=== PATIENT | female | born 1940 | race Caucasian/White ===

== ENCOUNTER → 2016-09-26 | Outpatient (CLI) | payer OTHER, MEDICARE | LOC: MMPC 11:11 | PROVIDERS: ATTEND Nurse Practitioner | DX: R05 Cough (principal); R49.0 Dysphonia; R09.81 Nasal congestion | CPT/HCPCS: 99213; G0463 ==

== ENCOUNTER → 2016-10-31 | Outpatient (CLI) | payer OTHER, MEDICARE | LOC: MMPC 11:11 | PROVIDERS: ATTEND Surgery | DX: Z86.010 Personal history of colon polyps (principal) | CPT/HCPCS: 99213 ==

== ENCOUNTER → 2016-11-05 | Outpatient (CLI) | payer OTHER, MEDICARE | LOC: LAB 08:42 | PROVIDERS: ATTEND Surgery | DX: Z22.322 Carrier or suspected carrier of Methicillin resistant Staphylococcus aureus (principal) | CPT/HCPCS: 87641 ==

== ENCOUNTER 2016-11-08 08:30 | Day surgery (SDC) | payer OTHER, MEDICARE ==
[~2016-11-08 08:30] MED LIST: LIDOCAINE W/ SODIUM BICARB 0.5 ML SYR ONE; Lactated Ringers 1,000 ML PRIMARY IV ONE; MIDAZOLAM 5 MG/1 ML ONE; fentaNYL Inj 100 MCG/2 ML VIAL ONE
--- NOTE | 2016-11-08 10:03 | GEN.OPNOTE ---
Colonoscopy Procedure Note Surgery Date: 11/08/16 Preoperative Diagnosis: Personal history of colon polyps. Postoperative Diagnosis: Same. Procedure: Complete colonoscopy. Surgeon: Danilo Fermin MD Anesthesia Provider: Fernando Bishop CRNA Anesthesia Type: MAC Indications: Patient had a cecal polyp removed 3 years ago. She is due for follow-up colonoscopy. Findings: Prep : [Good with some retained stool in the cecum] Cecum : [Normal] Ascending : [Normal] Transverse : [Normal] Sigmoid : [A few diverticuli] Rectum : [Normal] Digital Rectal Exam : [Normal] A lubricated flexible colonoscope was inserted and passed to the blind end of the cecum. The blind end of the cecum and ileocecal valve were clearly seen. The cecum needed to be rinsed of particulate matter but overall I got a very good look. Overall the prep was adequate. A tiny polyp could've been missed as there was some retained stool. Air was aspirated as the scope was withdrawn. The colonoscopy was normal without polyp, tumor, neoplastic mass, infectious or inflammatory process. The scope was withdrawn completing the procedure. Patient tolerated the procedure well without complication. She was taken to outpatient surgery in stable condition. Follow-up with my office on an as-needed basis. Patient would not need a colonoscopy for 5 years at which time should be 81 years old. Probably not necessary to do any further colonoscopies.
[2016-11-08 12:04] VITALS: RESP 16; TEMP 97.6
== END 2016-11-08 11:45 | disposition home or self-care (01) ==
LOC: SDSC 08:30
PROVIDERS: ATTEND Surgery
DX: Z86.010 Personal history of colon polyps (principal)
CPT/HCPCS: 45378; J2704; J3010; J2250; J7120

== ENCOUNTER 2016-12-07 10:24 | Observation (INO) | payer OTHER, MEDICARE ==
[2016-12-07] MEDS ORDERED: KETOROLAC 15 MG/1 ML VIAL IVP ONE (10:38)
--- NOTE | 2016-12-07 10:44 | PDOC ---
Back Pain / Injury HPI - General Chief Complaint: Neck / Back Complaint Stated Complaint: BACK PAIN Date Seen by Provider: 12/07/16 Time Seen by Provider: 10:35 Source: Patient Exam Limitations: POSITIVE: No limitations Nurse's Notes Reviewed & Considered: Yes - History of Present Illness Initial Comments: The patient is a 76-year-old female who presents to the emergency department with right lower back pain. She states that she underwent right hip replacement in August of last year. She continues to do outpatient physical therapy for this. She states that yesterday she was also having some pain in her right lower back when she went to physical therapy. She states that after therapy this pain seemed to intensify. She denies any specific injury otherwise. This morning the pain was bad enough that she was having a difficult time walking. She lives in assisted living by herself and subsequently called EMS to bring her here to the emergency room. She denies any urinary symptoms. She does have some radiation of pain into her right leg however she is unsure whether this is new pain or pain related to her hip surgery. She denies any fevers or chills or any other associated complaints. She did not take anything for pain yet this morning. - Patient Home Medications Home Medications: Home Medications Calcium 500 + Vit D 200 Caplet 1 tab PO BID 04/18/11 Docusate Sodium [Colace] 1 cap ORAL BID capsule 04/18/11 Cholecalciferol [Vitamin D] 1 cap PO BID cap 11/21/11 Nitroglycerin 1 tab SL q5 PRN #30 tab 11/13/12 Zinc Gluconate [Zinc] 1 tab PO DAILY tab 06/22/13 Ascorbic Acid [Vitamin C] 1,000 mg PO DAILY tab 08/31/14 Denosumab [Prolia] 1 ml SUBCUT every 6 months #0 ml 06/15/15 Loratadine 10 mg PO DAILY #10 tab 04/02/16 Sodium Chloride [Saline Nasal [place]] 44 ml NS PRN #1 spray 04/02/16 Pantoprazole Sodium [Protonix] 1 tab PO QPM #30 tab 04/22/16 Atorvastatin Calcium [Lipitor] 1 tab PO QHS #30 tab 07/03/16 Bumetanide 1 tab PO BID #60 tab 09/05/16 Fluticasone/Salmeterol [Advair 250-50 Diskus] 1 puff INH BID #1 puff 09/05/16 Fenofibric Acid (Choline) [Trilipix] 1 tab-cap ORAL QD #30 tab-cap 10/14/16 Metoprolol Tartrate 1 tab ORAL BID #60 tab 10/14/16 Potassium Chloride 3 cap PO BID #180 cap 10/21/16 - Patient Allergies Allergies/Adverse Reactions: Allergies Allergy/AdvReac Type Severity Reaction Status Date / Time hydrochlorothiazide Allergy Severe UNKNOWN Verified 12/07/16 10:35 triamterene [Triamterene] Allergy Severe UNKNOWN Verified 12/07/16 10:35 Past Medical History - heen HEENT History: Hard of Hearing, Dentures/Partials Cardiovascular History: Hypertension, Hyperlipidemia Respiratory History: Asthma Additional Respiratory History: ALLERGIC RHINITIS Gastrointestinal History: GERD Genitourinary History:  Additional Genitourinary History: YEAR AGO UTI Endocrine History: Denies History Musculoskeletal History: Osteoporosis Prosthesis or Implant: Yes (RIGHT HIP) Additional Musculoskeletal History: VITAMIN D DEFICIENCY Neurological History:  Additional Neurological History: PT IS CONFUSED AT TIMES, STATES MEMORY ISN'T GOOD IT USED TO BE, STATES NO ONE MAKES HER MEDICAL DECISIONS YET Blood Disorders: Denies History Psychiatric History: Depression History of Sexually Transmitted Diseases: No Cancer History: Denies History History of MDRO: Yes History of Other Communicable Diseases: No Alcohol Use: Rarely Substance Use Type: None Previous Surgical History: Yes Type / Date of Surgery: RIGHT MINO/BILAT CATARACT EXT/ COLONOSCOPY/ CORONARY ANGIOGRAM/ RIGHT 5TH FINGER DISLOCATION REPAIR Anesthesia Reactions: No Malignant Hyperthermia: No Significant Family History: Heart disease Past Medical History Reviewed: Reviewed - No Changes ROS - Limitations ROS Limitations: No Limitations Constitution: DENIES: Chills, Fever Cardiovascular: REPORTS: Denies Cardiac Symptoms Respiratory: REPORTS: Denies Resp Symptoms Neurological: DENIES: Headache, Dizziness, Tingling, Numbness, Weakness Gastrointestinal: REPORTS: Denies GI Symptoms. DENIES: Abdominal Pain Genitourinary: REPORTS: Denies Symptoms. DENIES: Dysuria, Hematuria, Difficulty Urinating Eyes: REPORTS: Denies Symptoms ENT: REPORTS: Denies Symptoms Skin: DENIES: Rash Back Physical Assessment - General Appearance General Appearance: REPORTS: Alert, Cooperative, No Acute Distress - HEENT HEENT: POSITIVE: Head Inspection Nml - Neck Neck: POSITIVE: Trachea Midline - Respiratory / CVS Respiratory / CVS: POSITIVE: Breath Sounds Normal, No Respiratory Distress, Heart Sounds Normal, Regular Rate/Rhythm - Abdomen Abdomen: Soft: (All Quadrants), Denies Tenderness: (All Quadrants), No Distention: (All Quadrants) - Skin Skin: REPORTS: Intact, No Rash - Extremities Extremity Assessment: Normal ROM: (ALL), Normal Inspection: (ALL) (trace edema in the lower extremities) Peripheral Pulses: Dorsalis-pedis (R): 2+, Dorsalis-pedis (L): 2+ - Neurological / Psychological Neuro / Psych: POSITIVE: Oriented X3, Motor Normal, Sensation Normal Back Progress - Results Reviewed by me Xrays/CTs/US Reviewed: Yes Discussed with Radiologist: Yes Radiology Findings: CT the abdomen and pelvis without contrast reveals no acute intra-abdominal pathology, she does have degenerative changes in the lumbar spine with no acute fracture. Lab Results Reviewed: Yes Lab Results:: Laboratory Results 12/07/16 12/07/16 Range/Units 10:45 10:50 WBC 7.82 (4.8-10.8) 10^3/uL RBC 4.71 (4.20-5.40) 10^6/uL Hgb 13.3 (12.0-16.0) g/dL Hct 41.1 (37.0-47.0) % MCV 87.3 (81-99) FL MCH 28.2 (27-31) PG MCHC 32.4 L (33-37) g/dL RDW Std Deviation 45.6 (39-50) fL RDW Coeff of Carlyn 14.5 (11.5-14.5) % Plt Count 308 (140-350) 10*3/uL MPV 11.5 (7.4-12.2) FL Immature Gran % (Auto) 0.3 (0-5) % Neut % (Auto) 48.7 L (50-80) % Lymph % (Auto) 28.1 (10-50) % [place] % (Auto) 7.2 (5-15) % Eos % (Auto) 14.7 H (0-8) % Baso % (Auto) 1.0 (0-1) % Immature Gran # (Auto) 0.02 10*3/UL Neut # (Auto) 3.81 10*3/UL Lymph # (Auto) 2.20 10*3/uL [place] # (Auto) 0.56 (0.3-0.8) 10*3/UL Eos # (Auto) 1.15 10*3/UL Baso # (Auto) 0.08 10*3/UL WBC Morphology Comment Normal morphology (NORM) Plt Morphology Comment Normal morphology (NORM) RBC Morph Comment Normal morphology (NORM) Sodium 141 (135-145) meq/L Potassium 4.2 (3.8-5.2) meq/L Chloride 102 (98-112) meq/L Carbon Dioxide 27 (23-33) meq/L Anion Gap 12 (5-20) BUN 22 (7-22) mg/dL Creatinine 1.1 (0.50-1.20) mg/dL Estimated GFR (>60 ml/min/1.73m(2)) BUN/Creatinine Ratio 20.00 (6-20) Glucose 99 (78-110) mg/dL Calculated Osmolality 294.0 H (267-292) mOsm/kg Calcium 10.2 (8.7-10.7) mg/dL Total Bilirubin 0.8 (0.3-1.2) mg/dL AST 29 (8-39) IU/L ALT 24 (9-52) IU/L Alkaline Phosphatase 58 (38-126) IU/L C-Reactive Protein 0.7 (0.0-0.9) mg/dL Total Protein 7.8 (6.1-8.0) g/dL Albumin 4.8 (3.5-4.8) g/dL Globulin 3.0 (2.50-4.10) g/dL Albumin/Globulin Ratio 1.60 (1.3-2.0) mg/g Ur Collection Type Clean catch urine Urine Color Yellow Urine Clarity Clear (CLEAR) Urine pH 6.5 (5.0-8.5) Ur Specific [place] 1.010 (1.005-1.030) Urine Protein Negative (NEG) mg/dl Urine Glucose (UA) Negative (NEG) mg/dL Urine Ketones Negative (NEG) Urine Occult Blood Negative (NEG) Urine Nitrate Negative (NEG) Urine Bilirubin Negative (NEG) Urine Urobilinogen 0.2 (0.2) EU/dL Ur Leukocyte Esterase Negative (NEG) Ur Culture Indicated? Culture not set - Patient's Progress MDM / ED Course: An INT was established and she did receive 15 mg of Toradol IV. She had no pain relief with this and she subsequently received morphine 2 mg and Zofran 4 mg IV. This did drop her oxygen saturations and she was placed on O2 per nasal cannula. She did not however have any significant pain relief and still has considerable pain even with minimal movements in the bed primarily in her right lower back. The patient does live alone at home in the assisted living facility. At this point I do not think she would be able to function there. I did discuss patient with Dr. Bhatia and he is agreed to admit the patient for further pain control and treatment. The patient is in agreement with this plan. - Consult Counseled: POSITIVE: Patient, RE: Lab Results, RE: Radiology Results, RE: DX, RE : Need for F/U Patient Care Time - Estimated PCT Patient Care Time (In Minutes): 35 Vital Signs - Recent Vital Signs Vital Signs: Vital Signs (Last 8 hours) Temp Pulse Resp BP Pulse Ox 12/07/16 12:09 94 16 12/07/16 10:25 96.8 F 60 16 153/83 94 - VS Reviewed Vital Signs Reviewed: Yes Discharge Clinical Impression: Acute low back pain Discharge Disposition: Admit to Inpatient Condition: Fair Date Decision to Admit to Inpatient: 12/07/16 Time Decision to Admit to Inpatient: 13:20
[2016-12-07] MEDS: NORMAL SALINE 10 ML SYRINGE FLUSH IVP PRN ×3 (10:45→11:45)
[2016-12-07 10:53] LABS: BASOPHILS # (AUTO) 0.08 10*3/UL; EOSINOPHILS # (AUTO) 1.15 10*3/UL; EOSINOPHILS % (AUTO) 14.7 % (0-8); HEMATOCRIT 41.1 % (37.0-47.0); HEMOGLOBIN 13.3 g/dL (12.0-16.0); MEAN CORPUSCULAR HEMOGLOBIN 28.2 PG (27-31); MEAN CORPUSCULAR HGB CONC 32.4 g/dL (33-37); MEAN CORPUSCULAR VOLUME 87.3 FL (81-99); MEAN PLATELET VOLUME 11.5 FL (7.4-12.2); MONOCYTES # (AUTO) 0.56 10*3/UL (0.3-0.8); MONOCYTES % (AUTO) 7.2 % (5-15); NEUTROPHILS # (AUTO) 3.81 10*3/UL; NEUTROPHILS % (AUTO) 48.7 % (50-80); RED BLOOD COUNT 4.71 10^6/uL (4.20-5.40)
[2016-12-07 10:55] LABS: PLATELET MORPHOLOGY COMMENT NORMAL MORPHOLOGY (NORM); RBC MORPHOLOGY COMMENT NORMAL MORPHOLOGY (NORM); WBC MORPHOLOGY COMMENT NORMAL MORPHOLOGY (NORM)
[2016-12-07 11:05] LABS: CLARITY,URINE CLEAR (CLEAR); COLOR,URINE YELLOW; GLUCOSE, URINE (UA) NEGATIVE (NEG); NITRATE,URINE NEGATIVE (NEG); OCCULT BLOOD,URINE NEGATIVE (NEG); PH,URINE 6.5 (5.0-8.5); PROTEIN,URINE NEGATIVE (NEG); URINE SAMPLE TYPE CLEAN CATCH URINE
[2016-12-07 11:06] LABS: BILIRUBIN,URINE NEGATIVE (NEG); UROBILINOGEN,URINE 0.2 EU/dL (0.2)
[2016-12-07 11:08] LABS: C-REACTIVE PROTEIN 0.7 mg/dL (0.0-0.9); CALCIUM 10.2 mg/dL (8.7-10.7); SERUM ALBUMIN 4.8 g/dL (3.5-4.8)
[2016-12-07] MEDS ORDERED: MORPHINE SULFATE 2 MG/1 ML IVP ONE (11:37)
[2016-12-07] MEDS ORDERED: ONDANSETRON 4 MG/2 ML VIAL IVP ONE (11:38)
--- NOTE | 2016-12-07 12:31 | DI ---
HISTORY: Right flank pain. No prior history of stones. PREVIOUS EXAM: None available. TECHNIQUE: Multiple helically acquired CT images are obtained through the abdomen and pelvis without contrast. FINDINGS: CT images demonstrate postsurgical changes consistent with right total hip arthroplasty. There is no free air nor free fluid. The urinary bladder is unremarkable. The liver, gallbladder, s pleen, pancreas and adrenals are unremarkable. There is no obstructive uropathy. There are a few small colonic diverticula without evidence of acute diverticulitis. There is mild levoscoliosis of the lower lumbar spine with some mild dextroscoliosis of the thoracic lumbar junction. There is significant degenerative disc disease at L5/S1. There are a few shotty mesenteric lymph nodes. IMPRESSION: 1. No acute intra-abdominal pathology.
[2016-12-07] MEDS ORDERED: HYDROmorphone 2 MG/1 ML IVP PRN (14:37)
[2016-12-07] MEDS ORDERED: Non-Formulary Drug (Denosumab [Prolia] 1 ML) SUBCUT SCH (14:37)
[2016-12-07] MEDS ORDERED: LIDOCAINE W/ SODIUM BICARB 0.5 ML SYR SUBD PRN (14:37)
[2016-12-07] MEDS ORDERED: NORMAL SALINE 10 ML SYRINGE FLUSH IVP PRN (14:37)
[2016-12-07] MEDS ORDERED: ONDANSETRON 4 MG/2 ML VIAL IVP PRN (14:37)
[2016-12-07] MEDS: Potassium Chloride Tab 10 MEQ TAB PO SCH (16:57)
[2016-12-07] MEDS: Calcium/Vit D 600mg/400u Tab 1 TAB TABLET PO SCH ×2 (16:57→20:58)
[2016-12-07] MEDS: FLUTICASONE/SALMETEROL 250/50 UD INHALER INH SCH (18:44)
[2016-12-07] MEDS: HYDROcodone/IBUPROFEN 7.5 MG/200 MG TABLET PO PRN (19:42)
[2016-12-07] MEDS: BISACODYL 5 MG TABLET PO PRN (19:42)
[2016-12-07] MEDS: BUMETANIDE 1 MG TABLET PO SCH (20:59)
[2016-12-07] MEDS: ATORVASTATIN 40 MG TABLET PO SCH (20:59)
[2016-12-07] MEDS: Metoprolol TARTRATE Tab 25 MG TAB PO SCH (21:01)
[2016-12-07] MEDS: PANTOPRAZOLE 40 MG TABLET PO SCH (21:01)
[2016-12-07] MEDS ORDERED: Sodium Chloride 0.9% 500 ML IV ONE (21:13)
--- NOTE | 2016-12-07 21:15 | PDOC ---
History and Physical - History of Present Illness History of Present Illness: This very nice 69-year-old female who presented to the emergency department secondary to right lower back pain she had recent surgery with a right hip replacement in August and continues to do outpatient physical therapy she doesn't recall injuring herself but the pain is getting worse and unable to move her having difficulty also walking. She lives by herself in assisted living and is unable to be discharged home secondary to the intense pain and inability to ambulate denies chest pain nausea vomiting dysuria hematuria Past Medical History Medical History: Osteoporosis, hypertension, hyperlipidemia, allergic rhinitis, gestational diabetes, Surgical History: Cataract extraction, colonoscopy remote, urinary angiogram, repair dislocated fifth finger Tobacco Use: Never Smoker Substance Use Type: None Medication / Allergies Home Medications: Home Medications Medication Instructions Recorded Confirmed Type Calcium 500 + Vit D 200 Caplet 1 tab PO BID 04/18/11 12/07/16 History Docusate Sodium [Colace] 1 cap ORAL BID capsule 04/18/11 12/07/16 History Cholecalciferol [Vitamin D] 1 cap PO BID cap 11/21/11 12/07/16 History Nitroglycerin 1 tab SL q5 PRN #30 tab 11/13/12 12/07/16 Clinic Zinc Gluconate [Zinc] 1 tab PO DAILY tab 06/22/13 12/07/16 History Ascorbic Acid [Vitamin C] 1,000 mg PO DAILY tab 08/31/14 12/07/16 History Denosumab [Prolia] 1 ml SUBCUT every 6 months #0 ml 06/15/15 12/07/16 Clinic Loratadine 10 mg PO DAILY #10 tab 04/02/16 12/07/16 Clinic Sodium Chloride [Saline Nasal 44 ml NS PRN #1 spray 04/02/16 12/07/16 Clinic [place]] Pantoprazole Sodium [Protonix] 1 tab PO QPM #30 tab 04/22/16 12/07/16 Clinic Atorvastatin Calcium [Lipitor] 1 tab PO QHS #30 tab 07/03/16 12/07/16 Clinic Bumetanide 1 tab PO BID #60 tab 09/05/16 12/07/16 Clinic Fluticasone/Salmeterol [Advair 1 puff INH BID #1 puff 09/05/16 12/07/16 Clinic 250-50 Diskus] Fenofibric Acid (Choline) 1 tab-cap ORAL QD #30 tab-cap 10/14/16 12/07/16 Clinic [Trilipix] Metoprolol Tartrate 1 tab ORAL BID #60 tab 10/14/16 12/07/16 [facility] Potassium Chloride 3 cap PO BID #180 cap 10/21/16 12/07/16 Clinic Allergies/Adverse Reactions: Allergies Allergy/AdvReac Type Severity Reaction Status Date / Time hydrochlorothiazide Allergy Severe UNKNOWN Verified 12/07/16 19:15 triamterene [Triamterene] Allergy Severe UNKNOWN Verified 12/07/16 19:15 Review of Systems - Review of Systems All Systems: Reviewed & No Additional Complaints Except as Stated - Respiratory Respiratory: DENIES: Negative System Review, Cough, Sputum, Dyspnea At Rest, Dyspnea with Exertion, Pleuritic Pain, Hemoptysis, Wheezing, Other, See HPI - Cardiovascular Cardiovascular: DENIES: Negative System Review, Chest Pain, Edema, Syncope, Palpitations, Orthopnea, Paroxysmal Nocturnal Dyspnea, Other, See HPI - Gastrointestinal Gastrointestinal / Abdominal: DENIES: Negative System Review, Nausea, Vomiting, Diarrhea, Constipation, Abdominal Pain, Bloody Stool, Poor Appetite, Heartburn, Regurgitation, Bloating, Lactose Intolerance, Melena, Bright Red Blood Per Rectum, Other, See HPI - Musculoskeletal Musculoskeletal: REPORTS: Back Pain Exam - Vitals Vital Signs: Vital Signs Temperature 98.5 F Temperature Source Oral Pulse Rate [Pulse Oximeter] 50 Pulse Rate 48 Respiratory Rate 18 Blood Pressure [Right Arm] 150/58 Blood Pressure 144/79 Pulse Ox 97 Oxygen Flow Rate 2 Oxygen Delivery Method Nasal Cannula Height 5 ft 8 in Weight 79.515 kg - General General Appearance: POSITIVE: No Acute Distress, Cooperative - Head Head Exam: POSITIVE: Normal Inspection, Normocephalic, Atraumatic - Eye Eye Exam: POSITIVE: Normal Appearance, PERRL, EOMI - Respiratory Respiratory Exam: POSITIVE: Clear to Auscultation - Bilaterally, Breathing Non Labored, Normal To Percussion - Cardiovascular Cardiovascular Exam: POSITIVE: RRR, No Murmur, No Clicks, No Gallops - GI/Abdominal GI/Abdominal Exam: POSITIVE: Normal Bowel Sounds, Non Tender, Non Distended, Soft - Extremities Extremities Exam: POSITIVE: No Clubbing Present, No Edema Present, No Cyanosis Present - Back Additional Back Exam Details: Pain in the right lower back is less tender she states Results - Labs CBC and BMP: 12/07/16 10:45 12/07/16 10:45 Assessment and Plan - Patient Problems (1) Acute low back pain Current Visit: Yes Status: Acute Comment: PT and OT consult Tylenol for pain we will write for some when necessary Dilaudid if needed patient is doing better - Assessment / Plan Additional Assessment/Plan Details: All other medical issues are stable
[2016-12-07] MEDS ORDERED: Sodium Chloride 0.9% 1,000 ML ONE (22:31)
[2016-12-07] MEDS ORDERED: Sodium Chloride 0.9% 1,000 ML PRIMARY IV ONE (22:36)
[2016-12-08] MEDS: HYDROcodone/IBUPROFEN 7.5 MG/200 MG TABLET PO PRN ×2 (03:05→22:53)
[2016-12-08 06:09] LABS: BASOPHILS # (AUTO) 0.03 10*3/UL; BASOPHILS % (AUTO) 0.4 % (0-1); EOSINOPHILS # (AUTO) 0.29 10*3/UL; EOSINOPHILS % (AUTO) 3.9 % (0-8); HEMATOCRIT 35.9 % (37.0-47.0); HEMOGLOBIN 11.2 g/dL (12.0-16.0); MEAN CORPUSCULAR HEMOGLOBIN 27.7 PG (27-31); MEAN CORPUSCULAR HGB CONC 31.2 g/dL (33-37); MEAN CORPUSCULAR VOLUME 88.9 FL (81-99); MEAN PLATELET VOLUME 11.3 FL (7.4-12.2); MONOCYTES # (AUTO) 0.54 10*3/UL (0.3-0.8); MONOCYTES % (AUTO) 7.2 % (5-15); NEUTROPHILS # (AUTO) 4.78 10*3/UL; NEUTROPHILS % (AUTO) 64.2 % (50-80); RED BLOOD COUNT 4.04 10^6/uL (4.20-5.40)
[2016-12-08 06:15] LABS: PLATELET MORPHOLOGY COMMENT NORMAL MORPHOLOGY (NORM); RBC MORPHOLOGY COMMENT NORMAL MORPHOLOGY (NORM); WBC MORPHOLOGY COMMENT NORMAL MORPHOLOGY (NORM)
[2016-12-08 06:26] LABS: CALCIUM 9.7 mg/dL (8.7-10.7)
[2016-12-08] MEDS: FLUTICASONE/SALMETEROL 250/50 UD INHALER INH SCH ×2 (07:04→18:43)
[2016-12-08] MEDS: Potassium Chloride Tab 10 MEQ TAB PO SCH ×2 (07:20→17:14)
[2016-12-08] MEDS: LORATADINE 10 MG TABLET PO SCH (09:12)
[2016-12-08] MEDS: ASCORBIC ACID 500 MG TABLET PO SCH (09:12)
[2016-12-08] MEDS: CHOLECALCIFEROL 1000 IU TABLET PO SCH (09:12)
[2016-12-08] MEDS: BUMETANIDE 1 MG TABLET PO SCH ×2 (09:12→20:32)
[2016-12-08] MEDS: FENOFIBRIC ACID 135 MG ORAL SCH (09:13)
[2016-12-08] MEDS: Calcium/Vit D 600mg/400u Tab 1 TAB TABLET PO SCH ×3 (09:13→20:32)
[2016-12-08] MEDS: Metoprolol TARTRATE Tab 25 MG TAB PO SCH ×2 (09:13→20:32)
[2016-12-08] MEDS: ZINC GLUCONATE 50 MG PO SCH (09:13)
--- NOTE | 2016-12-08 16:39 | DI ---
COMPARISON: None available. TECHNIQUE: Single frontal view of the pelvis FINDINGS: Bone mineralization is adequate. Right total hip arthroplasty hardware present, incompletel y visualized, unremarkable on one view. No evidence of acute fracture or dislocation. Alignment is an atomic. Moderate degenerative changes of the lumbosacral junction seen. No erosive osseous lesions se en. Soft tissues are unremarkable. No large joint effusion. IMPRESSION: No evidence of acute osseous injury on a single view of the pelvis. If persistent concern , recommend CT for further evaluation.
--- NOTE | 2016-12-08 19:22 | PDOC(PROG) ---
Date and Time of Service: 12/08/2016, 1:30 PM Interval History: pain is a little better. pin points it on the right side, lateral back and superior to hip. No inflammatory changes noted on exam. no cellulitis. No chest pain, no SOB, no N/V Objective : Data - Labs CBC and BMP: 12/08/16 06:00 12/08/16 06:00 Labs - Last 24 Hours: Laboratory Results 12/08/16 Range/Units 06:00 WBC 7.45 (4.8-10.8) 10^3/uL RBC 4.04 L (4.20-5.40) 10^6/uL Hgb 11.2 L (12.0-16.0) g/dL Hct 35.9 L (37.0-47.0) % MCV 88.9 (81-99) FL MCH 27.7 (27-31) PG MCHC 31.2 L (33-37) g/dL RDW Std Deviation 46.0 (39-50) fL RDW Coeff of Carlyn 14.5 (11.5-14.5) % Plt Count 258 (140-350) 10*3/uL MPV 11.3 (7.4-12.2) FL Immature Gran % (Auto) 0.1 (0-5) % Neut % (Auto) 64.2 (50-80) % Lymph % (Auto) 24.2 (10-50) % [place] % (Auto) 7.2 (5-15) % Eos % (Auto) 3.9 (0-8) % Baso % (Auto) 0.4 (0-1) % Immature Gran # (Auto) 0.01 10*3/UL Neut # (Auto) 4.78 10*3/UL Lymph # (Auto) 1.80 10*3/uL [place] # (Auto) 0.54 (0.3-0.8) 10*3/UL Eos # (Auto) 0.29 10*3/UL Baso # (Auto) 0.03 10*3/UL WBC Morphology Comment Normal morphology (NORM) Plt Morphology Comment Normal morphology (NORM) RBC Morph Comment Normal morphology (NORM) Sodium 138 (135-145) meq/L Potassium 4.5 (3.8-5.2) meq/L Chloride 103 (98-112) meq/L Carbon Dioxide 26 (23-33) meq/L Anion Gap 9 (5-20) BUN 23 H (7-22) mg/dL Creatinine 1.0 (0.50-1.20) mg/dL Estimated GFR (>60 ml/min/1.73m(2)) BUN/Creatinine Ratio 23.00 H (6-20) Glucose 105 (78-110) mg/dL Calculated Osmolality 289.0 (267-292) mOsm/kg Calcium 9.7 (8.7-10.7) mg/dL Objective : Exam - General General Appearance: No Acute Distress, Cooperative Additional General Exam Details: Vital Signs - Last Taken Temperature 98 F 12/08/16 16:17 Pulse Rate 60 12/08/16 16:17 Respiratory Rate 17 12/08/16 16:17 Blood Pressure 128/54 12/08/16 16:17 Pulse Ox 93 12/08/16 16:17 - Eye Eye Exam: No Scleral Icterus - Respiratory Respiratory Exam: Clear to Auscultation - Bilaterally, Breathing Non Labored - Cardiovascular Cardiovascular Exam: RRR, No Murmur, No Clicks, No Gallops, No Rubs, No JVD - GI/Abdominal GI/Abdominal Exam: Normal Bowel Sounds, Non Tender, Non Distended, Soft - Extremities Extremities Exam: No Clubbing Present, No Edema Present, No Cyanosis Present Additional Extremities Exam Details: no hip swelling, no hip erythema - Neurological Neurological Exam: Alert, Oriented x 3, No Facial Droop, Speech Intact / Clear, Moves All Extremities Equally Assessment and Plan - Patient Problems (1) Acute low back pain Current Visit: Yes Status: Acute (2) Hyperlipidemia Current Visit: Yes Status: Chronic Qualifiers: Hyperlipidemia type: pure hypercholesterolemia Qualified Description: Pure hypercholesterolemia Qualifier Code(s): (E78.00) Pure hypercholesterolemia, unspecified, (E78.0) Pure hypercholesterolemia (3) Hypertension Current Visit: Yes Status: Chronic Qualifiers: Hypertension type: essential hypertension Qualifier Code(s): (I10) Essential (primary) hypertension - Assessment / Plan Additional Assessment/Plan Details: continue observation of pain and treatment of pain. PT and OT hopefully will be well enough to go home tomorrow
[2016-12-08] MEDS: PANTOPRAZOLE 40 MG TABLET PO SCH (20:32)
[2016-12-08] MEDS: ATORVASTATIN 40 MG TABLET PO SCH (20:32)
[2016-12-08] MEDS: BISACODYL 5 MG TABLET PO PRN (22:53)
[2016-12-08] MEDS ORDERED: ACETAMINOPHEN 325 MG TABLET PO PRN (23:58)
[2016-12-09] MEDS: FLUTICASONE/SALMETEROL 250/50 UD INHALER INH SCH (06:51)
[2016-12-09] MEDS: Potassium Chloride Tab 10 MEQ TAB PO SCH (07:56)
[2016-12-09] MEDS: HYDROcodone/IBUPROFEN 7.5 MG/200 MG TABLET PO PRN (08:00)
[2016-12-09] MEDS: Calcium/Vit D 600mg/400u Tab 1 TAB TABLET PO SCH ×2 (08:00→15:43)
[2016-12-09] MEDS: LORATADINE 10 MG TABLET PO SCH (08:01)
[2016-12-09] MEDS: BUMETANIDE 1 MG TABLET PO SCH (08:01)
[2016-12-09] MEDS: ASCORBIC ACID 500 MG TABLET PO SCH (08:02)
[2016-12-09] MEDS: Metoprolol TARTRATE Tab 25 MG TAB PO SCH (08:02)
[2016-12-09] MEDS: CHOLECALCIFEROL 1000 IU TABLET PO SCH (08:02)
[2016-12-09] MEDS: FENOFIBRIC ACID 135 MG ORAL SCH (08:02)
[2016-12-09] MEDS: ZINC GLUCONATE 50 MG PO SCH (08:03)
[2016-12-09] MEDS ORDERED: MAGNESIUM CITRATE 296 ML SOLUTION PO ONE (09:42)
--- NOTE | 2016-12-09 10:17 | PT.PROG ---
Progress Note Progress Note: S. Patient stated that she is feeling a little better this morning however she does not want to go to therapy this morning. O. patient ambulated 300 feet around the nurses station then performed standing marches, hip flexion/extension and sit to stands all x 10 bilaterally. Patient was left in her chair with alarm and call light. A. Patient tolerated ambulation well and reported that she felt better after therapy this morning. Patient would continue to benefit from skilled therapy to increase strength, mobility and endurance. Plan to perform aquatic exercise this afternoon to assist with pain. P. Continue POC.
--- NOTE | 2016-12-09 10:19 | PTI REPORT ---
Thank you for the referral of Kamila Giron. She was seen on 12/08/16 for an inpatient evaluation secondary to low back pain. SUBJECTIVE: The patient is a 76-year-old female. The patient lives by herself in [facility]. She uses the elevator to get to her apartment. She states she has help on to clean her apartment. She states she is independent with iADLs and ADLs. The patient reports she is in 6/10 local right sided low back pain that is intermittent and a sharp ache. She states at worst the pain is 9/ 10. She states it decreases when she is up and about moving and increases with extension and or rotation. PAST MEDICAL HISTORY: Past medical history can be found in the patient's medical record. OBJECTIVE FINDINGS: Range of motion: Range of motion of upper and lower extremities is within functional limits bilaterally. Strength: Manual muscle testing revealed 4-/5 lower extremity strength throughout bilaterally and 3+/5 manual muscle tests globally throughout bilateral upper extremities. Transfers: The patient transferred from sit to stand with supervision to four point walker. Ambulation: The patient was able to ambulate 150 feet with four point walker and contact guard assist. Balance: The patient demonstrates good static and dynamic sitting balance, good static standing balance, and fair plus dynamic standing balance. ASSESSMENT: The patient has subjective and objective findings consistent with right side low back pain and possible secondary changes to lumbar spine. Short-Term Goals: To be met by discharge from inpatient: Patient will be able to ambulate 300 feet with least restrictive assistive device and supervision for community ambulation. Patient will demonstrate 4/5 bilateral lower extremity strength for safety carry over with transfers and ambulation. Patient will demonstrate good static and dynamic standing balance. Patient will be able to complete supine to sit and sit to stand transfers with independence. Patient will report a pain level of 5/10 on the VAS at rest. Patient will demonstrate fair plus core stabilization. Long-Term Goals: To be met following discharge from inpatient: Patient will be able to ambulate 350 feet with no assistive device for community ambulation. Patient will demonstrate 4+/5 bilateral lower extremity strength for carry over for gait and transfer safety. Patient will have no pain at rest. Patient will have good minus core stabilization. TREATMENT PLAN: Patient will be seen B.I.D during the week and one time per day over the weekend as an inpatient to address the above goals and objectives. INITIAL TREATMENT: Treatment today consisted of the physical therapy evaluation followed by range of motion and manual muscle testing activities, transfers, and ambulation with four point walker. The patient was then left in her chair with chair alarm set and call button within reach. Nursing was notified. BE
[2016-12-09] MEDS: Fleet Enema w/Mineral Oil 133ml RECTAL SCH ×2 (11:00→12:37)
[2016-12-09 11:37] VITALS: RESP 20; TEMP 97.3
--- NOTE | 2016-12-09 14:24 | DCSUMMARY ---
Hospitalization Summary Admit Date: 12/07/16 Discharge Date: 12/09/16 Primary Diagnosis:: acute low back pain, resolved Secondary Diagnosis:: Constipation, resolved Hospital Course: This very pleasant 76-year-old female who came in with acute low back pain. It was right-sided, and the patient was admitted, therapy was ordered, and pain medications were written for. The patient's pain gradually improved and at one point we thought it might be related to her prosthetic, but it was a negative x- ray. There is a screw protruding from the hip replacement that could possibly be causing some of the patient's pain but given that it is resolved I think we will have the patient wait for any further follow-up until the pain returns. The only other issue during the hospital stay was constipation which improved with magnesium citrate and an enema ordered today. We discussed the patient using MiraLAX at home twice a week on Tuesdays and . No complains of chest pain or shortness of breath or nausea or vomiting today. We will continue therapy outside the hospital. Assessment and Plan: 1. As per discharge assessments noted 2. Disposition: Patient is discharged home. 3. Condition on discharge, stable and improved. 4. Diet: regular diet 5. Activities: resume normal activities 6. Follow-Up: 1. Dr. Beard in 1 week 2. 7. Medications at the Time of Discharge: Home Medications Medication Instructions Recorded Confirmed Type Calcium 500 + Vit D 200 Caplet 1 tab PO BID 04/18/11 12/07/16 History Docusate Sodium [Colace] 1 cap ORAL BID capsule 04/18/11 12/07/16 History Cholecalciferol [Vitamin D] 1 cap PO BID cap 11/21/11 12/07/16 History Nitroglycerin 1 tab SL q5 PRN #30 tab 11/13/12 12/07/16 Clinic Zinc Gluconate [Zinc] 1 tab PO DAILY tab 06/22/13 12/07/16 History Ascorbic Acid [Vitamin C] 1,000 mg PO DAILY tab 08/31/14 12/07/16 History Denosumab [Prolia] 1 ml SUBCUT every 6 months #0 ml 06/15/15 12/07/16 Clinic Loratadine 10 mg PO DAILY #10 tab 04/02/16 12/07/16 Clinic Sodium Chloride [Saline Nasal 44 ml NS PRN #1 spray 04/02/16 12/07/16 Clinic [place]] Pantoprazole Sodium [Protonix] 1 tab PO QPM #30 tab 04/22/16 12/07/16 [facility] Atorvastatin Calcium [Lipitor] 1 tab PO QHS #30 tab 07/03/16 12/07/16 [facility] Bumetanide 1 tab PO BID #60 tab 09/05/16 12/07/16 [facility] Fluticasone/Salmeterol [Advair 1 puff INH BID #1 puff 09/05/16 12/07/16 Clinic 250-50 [place]] Fenofibric Acid (Choline) 1 tab-cap ORAL QD #30 tab-cap 10/14/16 12/07/16 Clinic [Trilipix] Metoprolol Tartrate 1 tab ORAL BID #60 tab 10/14/16 12/07/16 [facility] Potassium Chloride 3 cap PO BID #180 cap 10/21/16 12/07/16 [facility] Polyethylene Glycol 3350 [Miralax] 17 gm PO DAILY #30 powd.pack 12/09/16 Rx 8. Time, care, counseling and coordination of care for this discharge is less than 30 minutes. Exam - Vitals Vital Signs: Vital Signs Temperature 97.3 F Temperature Source Temporal Artery Scan Pulse Rate [Pulse Oximeter] 55 Pulse Rate 48 Respiratory Rate 20 Blood Pressure [Right Arm] 126/52 Blood Pressure 144/79 Pulse Ox 98 Oxygen Flow Rate 2 Oxygen Delivery Method Room Air Height 5 ft 8 in Weight 166 lb - General General Appearance: POSITIVE: No Acute Distress, Cooperative - Eye Eye Exam: POSITIVE: No Scleral Icterus - Respiratory Respiratory Exam: POSITIVE: Clear to Auscultation - Bilaterally, Breathing Non Labored - Cardiovascular Cardiovascular Exam: POSITIVE: RRR, No Murmur, No Clicks, No Gallops, No Rubs, No JVD - GI/Abdominal GI/Abdominal Exam: POSITIVE: Normal Bowel Sounds, Non Tender, Non Distended, Soft - Extremities Extremities Exam: POSITIVE: No Clubbing Present, No Edema Present, No Cyanosis Present - Neurological Neurological Exam: POSITIVE: Alert, Oriented x 3, No Facial Droop, Speech Intact / Clear, Moves All Extremities Equally Data Perinent Studies: Laboratory Results 12/07/16 12/07/16 12/08/16 Range/Units 10:45 10:50 06:00 WBC 7.82 7.45 (4.8-10.8) 10^3/uL RBC 4.71 4.04 L (4.20-5.40) 10^6/uL Hgb 13.3 11.2 L (12.0-16.0) g/dL Hct 41.1 35.9 L (37.0-47.0) % MCV 87.3 88.9 (81-99) FL MCH 28.2 27.7 (27-31) PG MCHC 32.4 L 31.2 L (33-37) g/dL RDW Std Deviation 45.6 46.0 (39-50) fL RDW Coeff of Carlyn 14.5 14.5 (11.5-14.5) % Plt Count 308 258 (140-350) 10*3/uL MPV 11.5 11.3 (7.4-12.2) FL Immature Gran % (Auto) 0.3 0.1 (0-5) % Neut % (Auto) 48.7 L 64.2 (50-80) % Lymph % (Auto) 28.1 24.2 (10-50) % [place] % (Auto) 7.2 7.2 (5-15) % Eos % (Auto) 14.7 H 3.9 (0-8) % Baso % (Auto) 1.0 0.4 (0-1) % Immature Gran # (Auto) 0.02 0.01 10*3/UL Neut # (Auto) 3.81 4.78 10*3/UL Lymph # (Auto) 2.20 1.80 10*3/uL [place] # (Auto) 0.56 0.54 (0.3-0.8) 10*3/UL Eos # (Auto) 1.15 0.29 10*3/UL Baso # (Auto) 0.08 0.03 10*3/UL WBC Morphology Comment Normal morphology Normal morphology (NORM) Plt Morphology Comment Normal morphology Normal morphology (NORM) RBC Morph Comment Normal morphology Normal morphology (NORM) Sodium 141 138 (135-145) meq/L Potassium 4.2 4.5 (3.8-5.2) meq/L Chloride 102 103 (98-112) meq/L Carbon Dioxide 27 26 (23-33) meq/L Anion Gap 12 9 (5-20) BUN 22 23 H (7-22) mg/dL Creatinine 1.1 1.0 (0.50-1.20) mg/dL Estimated GFR (>60 ml/min/1.73m(2)) BUN/Creatinine Ratio 20.00 23.00 H (6-20) Glucose 99 105 (78-110) mg/dL Calculated Osmolality 294.0 H 289.0 (267-292) mOsm/kg Calcium 10.2 9.7 (8.7-10.7) mg/dL Total Bilirubin 0.8 (0.3-1.2) mg/dL AST 29 (8-39) IU/L ALT 24 (9-52) IU/L Alkaline Phosphatase 58 (38-126) IU/L C-Reactive Protein 0.7 (0.0-0.9) mg/dL Total Protein 7.8 (6.1-8.0) g/dL Albumin 4.8 (3.5-4.8) g/dL Globulin 3.0 (2.50-4.10) g/dL Albumin/Globulin Ratio 1.60 (1.3-2.0) mg/g Ur Collection Type Clean catch urine Urine Color Yellow Urine Clarity Clear (CLEAR) Urine pH 6.5 (5.0-8.5) Ur Specific [place] 1.010 (1.005-1.030) Urine Protein Negative (NEG) mg/dl Urine Glucose (UA) Negative (NEG) mg/dL Urine Ketones Negative (NEG) Urine Occult Blood Negative (NEG) Urine Nitrate Negative (NEG) Urine Bilirubin Negative (NEG) Urine Urobilinogen 0.2 (0.2) EU/dL Ur Leukocyte Esterase Negative (NEG) Ur Culture Indicated? Culture not set Patient Problems - Patient Problem List (1) Acute low back pain Current Visit: Yes Status: Resolved (2) Hyperlipidemia Current Visit: Yes Status: Chronic Qualifiers: Hyperlipidemia type: pure hypercholesterolemia Qualified Description: Pure hypercholesterolemia Qualifier Code(s): (E78.00) Pure hypercholesterolemia, unspecified, (E78.0) Pure hypercholesterolemia (3) Hypertension Current Visit: Yes Status: Chronic Qualifiers: Hypertension type: essential hypertension Qualifier Code(s): (I10) Essential (primary) hypertension
--- NOTE | 2016-12-10 07:35 | PT.PROG ---
Progress Note Progress Note: S: pt. states she is feeling much better today. O: Treatment consisted of functional activities: ambulated around the nurses station x 2 laps with CGA x 1. Therapeutic exercises: standing B LE 10x each: hip abd/add, marches, heel raises, sit to stands, bridges, LTR. Pt. was placed in her recliner with call button and chair alarm set. Nursing notified. A: Pt. overall did very well with all activities. She does still exhibit some weakness and uncertainty with ambulating, but this should continue to improve as she gets stronger. She did not require use of a.d. today. Should do well with continued strengthening upon discharge. P: Continue per POC to increase strength and activity tolerance. Ysabel Chawla, MARKET PRESIDENT
--- NOTE | 2016-12-10 16:08 | OTI REPORT ---
Thank you for the referral of Kamila Giron. She was seen on 12/09/16 for an occupational therapy inpatient evaluation secondary to low back pain. SUBJECTIVE: The patient is a 76-year-old female. The patient reports she is having difficulty with bowel movements. The patient reports she lives at [facility]. She reports she usually has meals at the [facility] or she microwaves her own; she states she does not use the oven or stove. She states she does live alone in the [facility] apartments. Prior to admission, the patient states she did have someone help her with laundry and cleaning her home. The patient states she is independent with driving and getting her groceries but she does get her meals from the senior center. Again, if she does cook anything she cooks it in the microwave. The patient states she is independent with taking her medication. PAST MEDICAL HISTORY: Past medical history can be found in the patient's medical record. OBJECTIVE FINDINGS: Range of motion: Today the patient has within functional limits for upper extremity range of motion. Pain: The patient rates her pain as a 3/10 on the verbal analog scale (0=no pain , 10=worst pain). Transfers: The patient requires stand by assist for chair and bed transfers. Activities of daily living: The patient is able to reach down to foot to don and doff her socks independently. ASSESSMENT: Problem List: Decreased safety awareness Short-Term Goals: To be met by discharge from inpatient: Patient will be able to dress self independently. Patient will be able to complete all functional transfers independently. Long-Term Goals: To be met following discharge from inpatient: Patient will be discharged to home demonstrating safety and independence with all ADLs and functional transfers. TREATMENT PLAN: Patient will be seen B.I.D during the week and one time per day over the weekend until discharge. INITIAL TREATMENT: Treatment today consisted of the initial evaluation activities only. BE
== END 2016-12-09 16:05 | disposition home or self-care (01) ==
LOC: ER 10:24 → MED/SURG 14:20
PROVIDERS: ADMIT Internal Medicine; ATTEND Internal Medicine
DX: M54.5 Low back pain (principal); K59.00 Constipation, unspecified; E78.5 Hyperlipidemia, unspecified; I10 Essential (primary) hypertension
CPT/HCPCS: 36415; 72170; 74176; 80048; 80053; 81003; 85025; 86140; 94640; 94761; 96374; 96375; 97110; 97161; 97165; 97530; 99284; J1170; J1885; J2270; J2405; J7030

== ENCOUNTER → 2016-12-18 | Outpatient (CLI) | payer OTHER, MEDICARE | LOC: MMPC 11:11 | PROVIDERS: ATTEND Internal Medicine | DX: M54.5 Low back pain (principal); I10 Essential (primary) hypertension; R53.83 Other fatigue; E55.9 Vitamin D deficiency, unspecified; E78.5 Hyperlipidemia, unspecified; K59.09 Other constipation | CPT/HCPCS: 99214; G0463 ==

== ENCOUNTER → 2017-01-07 | Outpatient (CLI) | payer OTHER, MEDICARE | LOC: MMPC 11:11 | PROVIDERS: ATTEND Internal Medicine | DX: M81.0 Age-related osteoporosis without current pathological fracture (principal) | CPT/HCPCS: G0463; J0897 ==

== ENCOUNTER → 2017-01-21 | Outpatient (CLI) | payer OTHER, MEDICARE | LOC: MMPC 11:11 | PROVIDERS: ATTEND Internal Medicine | DX: J06.9 Acute upper respiratory infection, unspecified (principal) | CPT/HCPCS: 99213; G0463 ==

== ENCOUNTER 2018-10-05 02:12 | Inpatient (IN) ==
[2018-10-05] MEDS ORDERED: Sodium Chloride 0.9% 1,000 ML PRIMARY IV ONE (02:20)
--- NOTE | 2018-10-05 02:34 | PDOC ---
Upper Ext Injury HPI - General Chief Complaint: Upper Extremity Problem/Injury Stated Complaint: RIGHT ARM INJURY Date Seen by Provider: 10/05/18 Time Seen by Provider: 02:20 Source: POSITIVE: Patient, EMS Exam Limitations: POSITIVE: No limitations Nurse's Notes Reviewed & Considered: Yes EMS Report Reviewed & Considered: Verbal - History of Present Illness Initial Comments: The patient is an 78-year-old female who is brought to the emergency department by ambulance with complaints of injury to her right upper arm. She states that she had gotten up to go to the bathroom when she slipped and fell landing on her right arm. She has significant pain primarily to the right upper arm. She did not hit her head and denies any loss of consciousness. She denies any neck, back, chest wall or abdominal pain. She does not have any injury to her lower extremities. She does not take any blood thinner medications. She does have a history of osteoporosis. Have you received a tetanus shot in the past 10 years?: Unknown - Patient Home Medications Home Medications: Home Medications Calcium 500 + Vit D 200 Caplet 1 tab PO BID 04/18/11 Cholecalciferol [Vitamin D] 1 cap PO BID cap 11/21/11 Ascorbic Acid [Vitamin C] 1,000 mg PO DAILY tab 08/31/14 Sodium Chloride [Saline Nasal [place]] 44 ml NS PRN PRN #1 spray 04/02/16 fluticasone 50 mcg/actuation nasal spray,suspension 2 spray INASL BID #16 g 06/09/17 denosumab 60 mg/mL subcutaneous syringe 60 mg SUBCUT every 6 months #0 ml 09/05/17 docusate sodium 100 mg capsule 100 mg PO BID cap 09/05/17 fluticasone 50 mcg/actuation nasal spray,suspension 50 mcg INASL QDAY #16 g 09/16 12/31 fenofibric acid (choline) 135 mg capsule,delayed release 135 mg PO QDAY #30 tab- cap 02/19/18 pantoprazole 40 mg tablet,delayed release 40 mg PO QPM #90 tab 03/13/18 potassium chloride ER 10 mEq capsule,extended release 30 meq PO BID #180 cap 03/25/18 loratadine 10 mg tablet 10 mg PO QDAY #10 tab 05/04/18 nitroglycerin 0.4 mg sublingual tablet 0.4 mg SL Q5-15M PRN #30 tab 05/04/18 polyethylene glycol 3350 17 gram oral powder packet 17 g PO QDAY ea 05/04/18 zinc gluconate 50 mg tablet 50 mg PO QDAY tab 05/04/18 metoprolol tartrate 25 mg tablet 25 mg PO BID #60 tab 06/22/18 atorvastatin 40 mg tablet 40 mg PO QHS #30 tab 07/10/18 bumetanide 2 mg tablet 2 mg PO BID #60 tab 08/25/18 - Patient Allergies Allergies/Adverse Reactions: Allergies Allergy/AdvReac Type Severity Reaction Status Date / Time hydrochlorothiazide Allergy Severe UNKNOWN Verified 10/05/18 02:52 triamterene [Triamterene] Allergy Severe UNKNOWN Verified 10/05/18 02:52 Past Medical History - heen HEENT History: Hard of Hearing, Dentures/Partials Cardiovascular History: Hypertension, Hyperlipidemia Respiratory History: Asthma Additional Respiratory History: ALLERGIC RHINITIS Gastrointestinal History: GERD Genitourinary History: Denies History Additional Genitourinary History: YEAR AGO UTI Endocrine History: Denies History Musculoskeletal History: Osteoporosis Prosthesis or Implant: Yes (RIGHT HIP) Additional Musculoskeletal History: VITAMIN D DEFICIENCY Neurological History:  Additional Neurological History: PT IS CONFUSED AT TIMES, STATES MEMORY ISN'T GOOD IT USED TO BE, STATES NO ONE MAKES HER MEDICAL DECISIONS YET Blood Disorders: Denies History Psychiatric History: Depression History of Sexually Transmitted Diseases: No Cancer History: Denies History History of MDRO: Yes Other Type of MDRO: BACTROBAN OINT STARTED ON 08/03-08/11. RECHECK MRSA 08/14/15 History of Other Communicable Diseases: No Alcohol Use: Rarely In the Past 12 Months, Have Used or Abuse Any Substance: None Previous Surgical History: Yes Type / Date of Surgery: RIGHT MINO/BILAT CATARACT EXT/ COLONOSCOPY/ CORONARY ANG IOGRAM/ RIGHT 5TH FINGER DISLOCATION REPAIR Anesthesia Reactions: No Malignant Hyperthermia: No Significant Family History: Heart disease Past Medical History Reviewed: Reviewed - No Changes ROS - Limitations ROS Limitations: No Limitations Constitution: DENIES: Chills, Fever Cardiovascular: REPORTS: Denies Cardiac Symptoms Respiratory: REPORTS: Denies Resp Symptoms Neurological: DENIES: Headache, Numbness, Weakness Gastrointestinal: REPORTS: Denies GI Symptoms Upper Ext Injury Exam - General Appearance General Appearance: POSITIVE: Alert, Cooperative, No Acute Distress - Extremities Upper Extremity: POSITIVE: Other (Examination the right upper extremity reveals limited range of motion of the right shoulder with tenderness to the proximal humerus and shoulder, no obvious deformity, good radial pulse in the right wrist, the right elbow and wrist are nontender) Upper Ext Injury Progress - Results Reviewed by me Xrays/CTs/US Reviewed by me: Yes Discussed with Radiologist: Yes Radiology Findings: X-ray of the right humerus and shoulder reveals a nondisplaced humeral neck fracture per radiologist. CBC and BMP: 10/05/18 02:10 10/05/18 02:10 Lab Results:: Laboratory Results 10/05/18 10/05/18 02:10 02:10 WBC 11.21 H RBC 4.61 Hgb 12.9 Hct 39.8 MCV 86.3 MCH 28.0 MCHC 32.4 L RDW Std Deviation 45.5 RDW Coeff of Carlyn 14.6 H Plt Count 298 MPV 12.0 Immature Gran % (Auto) 0.2 Neut % (Auto) 41.2 L Lymph % (Auto) 44.5 [place] % (Auto) 6.2 Eos % (Auto) 7.4 Baso % (Auto) 0.5 Immature Gran # (Auto) 0.02 Neut # (Auto) 4.62 Lymph # (Auto) 4.99 [place] # (Auto) 0.69 Eos # (Auto) 0.83 Baso # (Auto) 0.06 WBC Morphology Comment Normal morphology Plt Morphology Comment Normal morphology RBC Morph Comment Normal morphology Sodium 142 Potassium 3.4 L Chloride 103 Carbon Dioxide 26 Anion Gap 13 BUN 21 Creatinine 1.3 H Estimated GFR Margin Trimmer BUN/Creatinine Ratio 16.15 Glucose 152 H Calculated Osmolality 299.0 H Calcium 10.2 Total Bilirubin 1.0 AST 22 ALT 34 Alkaline Phosphatase 63 Total Protein 7.3 Albumin 4.7 Globulin 2.6 Albumin/Globulin Ratio 1.80 - Patient's Progress MDM / ED Course: An IV had been established per EMS and she had received 25 g of fentanyl. This did drop her oxygen saturations slightly and she was placed on O2 per nasal cannula. Her only complaint on arrival is right arm pain. X-rays of the right shoulder and humerus reveals a nondisplaced humeral neck fracture without dis location. The patient was placed in a right arm sling. The patient lives at home by herself. At this point it does not appear that the patient would be able to care for herself at home with her right arm immobilized in a sling. Dr. Garcia was consulted and will see the patient in the hospital. Dr. Perdue was contacted for admission and he is agreed to admit the patient for further care. These findings and recommendations were discussed with the patient and she is in agreement with current plan. - Consult Counseled: POSITIVE: Patient, RE: Lab Results, RE: Radiology Results, RE: DX, RE: Need for F/U Patient Care Time - Estimated PCT Patient Care Time (In Minutes): 25 Vital Signs - Recent Vital Signs Vital Signs: Vital Signs (Last 8 hours) Temp Pulse Resp BP Pulse Ox 10/05/18 02:12 97.2 F 69 20 147/75 91 - VS Reviewed Vital Signs Reviewed: Yes Discharge Clinical Impression: Proximal humerus fracture, Osteoporosis Discharge Disposition: Admit to Observation Condition: Fair Follow Up With: PEDRO JEFFREY [Primary Care Provider] -
[2018-10-05 02:40] LABS: BASOPHILS # (AUTO) 0.06 10*3/UL; BASOPHILS % (AUTO) 0.5 % (0-1); EOSINOPHILS # (AUTO) 0.83 10*3/UL; EOSINOPHILS % (AUTO) 7.4 % (0-8); Hematocrit [HCT] 39.8 % (37.0-47.0); Hemoglobin [HGB] 12.9 g/dL (12.0-16.0); LYMPHOCYTES # (AUTO) 4.99 10*3/uL; MEAN CORPUSCULAR HGB CONC 32.4 g/dL (33-37); MEAN CORPUSCULAR VOLUME 86.3 FL (81-99); MONOCYTES # (AUTO) 0.69 10*3/UL (0.3-0.8); MONOCYTES % (AUTO) 6.2 % (5-15); NEUTROPHILS # (AUTO) 4.62 10*3/UL; NEUTROPHILS % (AUTO) 41.2 % (50-80); RED BLOOD COUNT 4.61 10^6/uL (4.20-5.40)
[2018-10-05 03:07] LABS: PLATELET MORPHOLOGY COMMENT NORMAL MORPHOLOGY (NORM); RBC MORPHOLOGY COMMENT NORMAL MORPHOLOGY (NORM); WBC MORPHOLOGY COMMENT NORMAL MORPHOLOGY (NORM)
[2018-10-05 03:26] LABS: BLOOD UREA NITROGEN 21 mg/dL (7-22); BUN/CREATININE RATIO 16.15 (6-20); SERUM ALBUMIN 4.7 g/dL (3.5-4.8)
--- NOTE | 2018-10-05 03:38 | DI ---
EXAM: XR Right Shoulder Complete, 2 or More Views CLINICAL HISTORY: Trauma TECHNIQUE: Two or more views of the right shoulder. COMPARISON: No relevant prior studies available. FINDINGS: Bones/joints: Acute nondisplaced fracture of the neck of the humerus. No dislocation. Soft tissues: Unremarkable. IMPRESSION: Acute nondisplaced fracture of the neck of the humerus.
--- NOTE | 2018-10-05 03:39 | DI ---
EXAM: XR Right Humerus, 2 or More Views CLINICAL HISTORY: Trauma TECHNIQUE: Frontal and lateral views of the right humerus. COMPARISON: No relevant prior studies available. FINDINGS: Bones/joints: Acute nondisplaced fracture through the neck of the right humerus. No dislocation. Soft tissues: Unremarkable. IMPRESSION: Acute nondisplaced fracture through the neck of the right humerus.
[2018-10-05] MEDS ORDERED: CALCIUM CARBONATE 500 MG (TUMS) CHEWABLE TABLET PO PRN (04:20)
[2018-10-05] MEDS ORDERED: ACETAMINOPHEN 325 MG TABLET PO PRN (04:20)
[2018-10-05] MEDS ORDERED: MORPHINE SULFATE 2 MG/1 ML IVP PRN (04:20)
[2018-10-05] MEDS ORDERED: ONDANSETRON 4 MG/2 ML VIAL IVP PRN (04:20)
[2018-10-05] MEDS ORDERED: LIDOCAINE W/ SODIUM BICARB 0.5 ML SYR SUBD PRN (04:20)
[2018-10-05] MEDS: HYDROcodone-APAP 5 MG -325 MG TABLET PO PRN ×5 (04:49→18:59)
--- NOTE | 2018-10-05 07:47 | PDOC ---
HPI - History of Present Illness Date of Service: 10/05/18 Time of Service: 07:40 Chief Complaint: Pain in the right shoulder after a fall History of Present Illness: This is an 78 years old female with medical history for history of hypertension, hyperlipidemia and osteoporosis who was brought to the ER after she fell she was complaining from pain in her right arm. She said she got up to go to the bathroom and she slipped and fell on the right thumb. She denied hitting her head or losing consciousness. She was given pain medication in the ER shoulder x-ray showed nondisplaced humeral neck fracture , pain was not controlled and she lives alone so she was admitted. Patient is a very poor historian, she said she takes medication but she doesn't know for what reason she doesn't know the name of the medication. She does not know the day or the month. She knew the year though and she knew where she is at. Past Medical History Medical History: 1. Osteoporosis,. 2. hypertension. 3. hyperlipidemia. 4. allergic rhinitis Surgical History: 1. Cataract extraction. 2. History of right anterior hip replacement 2014 Past Social History: Does not smoke or does not drink. No drugs. Never been . No children. She has a cousin who lives here in town. Lives at the [facility]. Tobacco Use: Never Smoker In the Past 12 Months, Have Used or Abuse Any of the Following Substance: None Alcohol Use: None Medication / Allergies Home Medications: Home Medications Medication Instructions Recorded Confirmed Type Calcium 500 + Vit D 200 Caplet 1 tab PO BID 04/18/11 10/05/18 History Cholecalciferol [Vitamin D] 1 cap PO BID cap 11/21/11 10/05/18 History Ascorbic Acid [Vitamin C] 1,000 mg PO DAILY tab 08/31/14 10/05/18 History Sodium Chloride [Saline Nasal 44 ml NS PRN PRN #1 spray 04/02/16 10/05/18 History [place]] fluticasone 50 mcg/actuation nasal 2 spray INASL BID #16 g 06/09/17 10/05/18 Rx spray,suspension denosumab 60 mg/mL subcutaneous 60 mg SUBCUT every 6 months #0 ml 09/05/17 10/05/18 History syringe docusate sodium 100 mg capsule 100 mg PO BID cap 09/05/17 10/05/18 History fluticasone 50 mcg/actuation nasal 50 mcg INASL QDAY #16 g 10/08/17 10/05/18 Rx spray,suspension fenofibric acid (choline) 135 mg 135 mg PO QDAY #30 tab-cap 02/19/18 10/05/18 Rx capsule,delayed release pantoprazole 40 mg tablet,delayed 40 mg PO QPM #90 tab 03/13/18 10/05/18 Rx release potassium chloride ER 10 mEq 30 meq PO BID #180 cap 03/25/18 10/05/18 Rx capsule,extended release loratadine 10 mg tablet 10 mg PO QDAY #10 tab 05/04/18 10/05/18 History nitroglycerin 0.4 mg sublingual 0.4 mg SL Q5-15M PRN #30 tab 05/04/18 10/05/18 History tablet polyethylene glycol 3350 17 gram 17 g PO QDAY ea 05/04/18 10/05/18 History oral powder packet zinc gluconate 50 mg tablet 50 mg PO QDAY tab 05/04/18 10/05/18 History metoprolol tartrate 25 mg tablet 25 mg PO BID #60 tab 06/22/18 10/05/18 Rx atorvastatin 40 mg tablet 40 mg PO QHS #30 tab 07/10/18 10/05/18 Rx bumetanide 2 mg tablet 2 mg PO BID #60 tab 08/25/18 10/05/18 Rx Allergies/Adverse Reactions: Allergies Allergy/AdvReac Type Severity Reaction Status Date / Time hydrochlorothiazide Allergy Severe UNKNOWN Verified 10/05/18 02:52 triamterene [Triamterene] Allergy Severe UNKNOWN Verified 10/05/18 02:52 Review of Systems - Review of Systems All Systems: Reviewed & No Additional Complaints Except as Stated Exam - Vitals Vital Signs: Vital Signs Temperature 97.3 F Temperature Source Temporal Artery Scan Pulse Rate [Apical] 60 Pulse Rate [Pulse Oximeter] 69 Pulse Rate 59 Respiratory Rate 18 Blood Pressure [Left Arm] 142/73 Blood Pressure 159/73 Pulse Ox 97 Oxygen Flow Rate 2 Oxygen Delivery Method Nasal Cannula Height 5 ft 5 in Weight 176 lb 8 oz - General General Appearance: No Acute Distress, Cooperative, Obese - Head Head Exam: Normal Inspection - Eye Eye Exam: POSITIVE: Normal Appearance - ENT ENT Exam: POSITIVE: Normal Exam - Neck Neck Exam: Normal Inspection - Respiratory Respiratory Exam: POSITIVE: Clear to Auscultation - Bilaterally - Cardiovascular Cardiovascular Exam: POSITIVE: RRR - GI/Abdominal GI/Abdominal Exam: POSITIVE: Normal Bowel Sounds, Non Tender, Non Distended, Soft, No Organomegaly - Rectal Rectal Exam: POSITIVE: Deferred - External Exam: POSITIVE: Deferred - Extremities Additional Extremities Exam Details: Right arm was in a flexed position there is no bruising , restricted movement because of pain. - Back Back Exam: POSITIVE: Normal Inspection - Neurological Neurological Exam: POSITIVE: Alert, CN II-XII Intact, No Facial Droop, Speech Intact / Clear Additional Neurological Exam Details: Restriction of right arm movement because of pain. She does not know the day or the month she knew the year. She knows where she is at. - Psychiatric Psychiatric Exam: POSITIVE: Flat Affect - Integumentary Integumentary Exam: POSITIVE: Normal Color Results - Labs CBC and BMP: 10/05/18 02:10 10/05/18 02:10 - Imaging Status: Report Reviewed by Me (Shoulder x ray Acute nondisplaced fracture of the neck of the humerus.) Assessment and Plan - Patient Problems (1) Proximal humerus fracture Current Visit: Yes Status: Acute Comment: Dr. Garcia will see the patient. Likely nonsurgical. Will ask PT and OT to work with her. I did write for pain medication. She will need a Mi ni-Mental state as I think there is underlying dementia. I did speak with her contact lens blocker and cutter her cousin. Her cousin did say that she doesn't want to be involved with her care she cannot to be available for the patient. Code(s): S42.209A - Unspecified fracture of upper end of unspecified humerus, initial encounter for closed fracture (2) Essential hypertension Current Visit: No Status: Chronic Onset Date: 11/12/11 Comment: She doesn't know what she takes but the notes from Dr. Gresham says that she had history of hypertension and she is on metoprolol for that. I did ask her whether she is on a water pill she doesn't know. Suspect underlying dementia Code(s): I10 - Essential (primary) hypertension (3) Hypokalemia Current Visit: Yes Status: Acute Comment: We'll put her on potassium replacement Code(s): E87.6 - Hypokalemia (4) Hyperlipidemia Current Visit: No Status: Chronic Onset Date: 11/12/11 Comment: Lipitor is listed as one of her medication will continue with it Code(s): E78.5 - Hyperlipidemia, unspecified
--- NOTE | 2018-10-05 08:38 | CONSULT ---
Consult Note - Consult Consult Date: 10/05/18 Reason for Consult: Orthopedic Consult Requesting Physician: dr matson Primary Care Provider: Reg Gresham MD - History of Present Illness History of Present Illness: 78-year-old female [id number] who sustained a fall last PM injuring her right shoulder. Patient can recollect nothing specific about timing of the fall but she denies loss of consciousness chest pain shortness of breath fevers chills or night sweats. She states she initially fell getting ready for bed which is usually around 9:30 but then later recollects that she fell going to the bathroom later in the evening. She was brought to the hospital by ambulance. Patient states she has no pain elsewhere just in the upper portion of the humerus region near the shoulder. Past Medical History Medical History: 1. Osteoporosis,. 2. hypertension. 3. hyperlipidemia. 4. allergic rhinitis Surgical History: 1. Cataract extraction. 2. History of right anterior hip replacement 2014 Past Social History: Does not smoke or does not drink. No drugs. Never been . No children. She has a cousin who lives here in town. Lives at the [facility]. Tobacco Use: Never Smoker In the Past 12 Months, Have Used or Abuse Any of the Following Substance: None Alcohol Use: None Medication / Allergies Home Medications: Home Medications Medication Instructions Recorded Confirmed Type Calcium 500 + Vit D 200 Caplet 1 tab PO BID 04/18/11 10/05/18 History Cholecalciferol [Vitamin D] 1 cap PO BID cap 11/21/11 10/05/18 History Ascorbic Acid [Vitamin C] 1,000 mg PO DAILY tab 08/31/14 10/05/18 History Sodium Chloride [Saline Nasal 44 ml NS PRN PRN #1 spray 04/02/16 10/05/18 History [place]] fluticasone 50 mcg/actuation nasal 2 spray INASL BID #16 g 06/09/17 10/05/18 Rx spray,suspension denosumab 60 mg/mL subcutaneous 60 mg SUBCUT every 6 months #0 ml 09/05/17 10/05/18 History syringe docusate sodium 100 mg capsule 100 mg PO BID cap 09/05/17 10/05/18 History fluticasone 50 mcg/actuation nasal 50 mcg INASL QDAY #16 g 10/08/17 10/05/18 Rx spray,suspension fenofibric acid (choline) 135 mg 135 mg PO QDAY #30 tab-cap 02/19/18 10/05/18 Rx capsule,delayed release pantoprazole 40 mg tablet,delayed 40 mg PO QPM #90 tab 03/13/18 10/05/18 Rx release potassium chloride ER 10 mEq 30 meq PO BID #180 cap 03/25/18 10/05/18 Rx capsule,extended release loratadine 10 mg tablet 10 mg PO QDAY #10 tab 05/04/18 10/05/18 History nitroglycerin 0.4 mg sublingual 0.4 mg SL Q5-15M PRN #30 tab 05/04/18 10/05/18 History tablet polyethylene glycol 3350 17 gram 17 g PO QDAY ea 05/04/18 10/05/18 History oral powder packet zinc gluconate 50 mg tablet 50 mg PO QDAY tab 05/04/18 10/05/18 History metoprolol tartrate 25 mg tablet 25 mg PO BID #60 tab 06/22/18 10/05/18 Rx atorvastatin 40 mg tablet 40 mg PO QHS #30 tab 07/10/18 10/05/18 Rx bumetanide 2 mg tablet 2 mg PO BID #60 tab 08/25/18 10/05/18 Rx Allergies/Adverse Reactions: Allergies Allergy/AdvReac Type Severity Reaction Status Date / Time hydrochlorothiazide Allergy Severe UNKNOWN Verified 10/05/18 02:52 triamterene [Triamterene] Allergy Severe UNKNOWN Verified 10/05/18 02:52 Exam - - Exam: Examination shows that the patient has no tenderness in the left upper extremity no pain in the neck thoracic rib or lower back or pelvis region with squeeze. The patient has no pain or discomfort with movement of the lower extremities motor and sensory exam is nonfocal. Patient with tenderness in the proximal humerus mild amount of swelling she had has inability to move the elbow wrist and digits sensory exam is intact and motor exam is generally intact in the wrist and digits with no significant limitation but with bending the elbow shows complain of some proximal humerus pain. Good pulses brisk refill Radiographs were obtained of the shoulder proximal humerus as well as the humerus in general, this shows a nondisplaced proximal humerus fracture. - Vitals Vital Signs: Vital Signs Temperature 97.3 F Temperature Source Temporal Artery Scan Pulse Rate [Apical] 60 Pulse Rate [Pulse Oximeter] 69 Pulse Rate 59 Respiratory Rate 18 Blood Pressure [Left Arm] 142/73 Blood Pressure 159/73 Pulse Ox 97 Oxygen Flow Rate 2 Oxygen Delivery Method Nasal Cannula Height 5 ft 5 in Weight 80.059 kg Results - Labs CBC and BMP: 10/05/18 02:10 10/05/18 02:10 Assessment and Plan - Assessment / Plan Additional Assessment/Plan Details: Impression: Right nondisplaced proximal humerus fracture Plan: Shoulder immobilizer icing and protection no use of right upper extremity can do gentle range of motion of the elbow wrist and digits with the arm by the side. Follow serially with x-rays. - Time/Visit Time Spent With Patient: 15-25 Minutes
[2018-10-05] MEDS: POTASSIUM CHLORIDE 20 MEQ TAB PO SCH ×2 (09:31→20:21)
[2018-10-05] MEDS: Metoprolol TARTRATE Tab 25 MG TAB PO SCH ×2 (09:32→20:21)
[2018-10-05] MEDS: FENOFIBRIC ACID 135 MG PO SCH (09:32)
[2018-10-05] MEDS ORDERED: POLYETHYLENE GLYCOL 3350 17 GM POWDER PO PRN (15:43)
[2018-10-05] MEDS: PANTOPRAZOLE 40 MG TABLET PO SCH (17:14)
[2018-10-05] MEDS: ATORVASTATIN 40 MG TABLET PO SCH (20:21)
[2018-10-05] MEDS: Calcium/Vit D 600mg/400u Tab 1 TAB TABLET PO SCH (20:21)
[2018-10-06] MEDS: HYDROcodone-APAP 5 MG -325 MG TABLET PO PRN ×4 (04:44→20:36)
[2018-10-06] MEDS: FENOFIBRIC ACID 135 MG PO SCH (08:09)
[2018-10-06] MEDS: POTASSIUM CHLORIDE 20 MEQ TAB PO SCH ×2 (08:09→20:35)
[2018-10-06] MEDS: Calcium/Vit D 600mg/400u Tab 1 TAB TABLET PO SCH ×2 (08:09→20:36)
[2018-10-06] MEDS: Metoprolol TARTRATE Tab 25 MG TAB PO SCH ×2 (08:09→20:35)
--- NOTE | 2018-10-06 10:30 | OT.PROG ---
Progress Note Progress Note: S: pt reports pain is right at her arm but is not to bad. She says she has a hard time relaxing her arm in sling. O: pt was seen in her room in supine position completing bed mobility with mod Ind as it took her longer to complete. She then completed LE dressing with mod A and UE dressing with Max A. She then was transferred downstairs by PT. She completed UE exercises with L UE with RTB in all planes x15 in all planes. OT returned her to her room transferring the entire way with barbara walker. She was left upright in chair with alarm within reach. A: Pt participated well and transfers well with walker as she maintains balance. P: continue per POC.
[2018-10-06] MEDS ORDERED: HYDRALAZINE 20 MG/1 ML ONE (11:32)
--- NOTE | 2018-10-06 12:48 | PDOC(PROG) ---
Date of Service: 10/06/18 Time of Service: 12:43 Interval History: No complaints of chest pain, shortness breath, nausea or vomiting. States her right arm is tender Objective : Data - Labs CBC and BMP: 10/05/18 02:10 10/05/18 02:10 Objective : Exam - General General Appearance: No Acute Distress, Cooperative Additional General Exam Details: Vital Signs - Last Taken Temperature 97.3 F 10/06/18 11:01 Pulse Rate 63 10/06/18 11:01 Respiratory Rate 18 10/06/18 11:01 Blood Pressure 169/72 10/06/18 11:01 Pulse Ox 95 10/06/18 11:01 - Eye Eye Exam: No Scleral Icterus - ENT ENT Exam: Mucous Membranes Moist - Neck Neck Exam: JVP is not Raised - Respiratory Respiratory Exam: Clear to Auscultation - Bilaterally, Breathing Non Labored - Cardiovascular Cardiovascular Exam: RRR, No Murmur, No Clicks, No Gallops, No Rubs, No JVD - GI/Abdominal GI/Abdominal Exam: Normal Bowel Sounds, Non Tender, Non Distended, Soft - Extremities Extremities Exam: No Clubbing Present, No Edema Present, No Cyanosis Present, Joint Swelling (Right shoulder) - Neurological Neurological Exam: Alert, No Facial Droop, Speech Intact / Clear Assessment and Plan - Patient Problems (1) Acute renal failure Current Visit: Yes Status: Acute Code(s): N17.9 - Acute kidney failure, unspecified Qualifiers: Acute renal failure type: unspecified Qualified Code(s): N17.9 - Acute kidney failure, unspecified (2) Proximal humerus fracture Current Visit: Yes Status: Acute Code(s): S42.209A - Unspecified fracture of upper end of unspecified humerus, initial encounter for closed fracture Qualifiers: Encounter type: initial encounter Fracture type: closed Fracture alignment: nondisplaced Laterality: right (3) Essential hypertension Current Visit: Yes Status: Chronic Onset Date: 11/12/11 Code(s): I10 - Essential (primary) hypertension (4) Hyperlipidemia Current Visit: Yes Status: Chronic Onset Date: 11/12/11 Code(s): E78.5 - Hyperlipidemia, unspecified Qualifiers: Hyperlipidemia type: pure hypercholesterolemia Qualified Code(s): E78.00 - Pure hypercholesterolemia, unspecified; E78.0 - Pure hypercholesterolemia (5) Hypokalemia Current Visit: Yes Status: Acute Code(s): E87.6 - Hypokalemia - Assessment / Plan Additional Assessment/Plan Details: Continue conservative management for right humeral fracture, sling, ice, pain management with hydrocodone for now. I'll check electrolytes, basic metabolic panel again in the morning. The patient looks euvolemic some wondering if this could be actually chronic kidney disease. Will order MOCA evaluation
--- NOTE | 2018-10-06 14:10 | PT.PROG ---
Progress Note Progress Note: S. Patient stated that she is feeling alright, she stated that her arm hurts a lot when she moves. O. Patient ambulated 40 feet to the wheelchair and was wheeled to the therapy gym where she performed seated exercises in the form of; long arc quads, heel toe raises, marches, ball squeezes, clam shells, resisted knee flexion all x 15, sit to stands x 10. Patient was left with OT for further therapy. A. Patient tolerated therapy well, she did struggle with pain in her arm during ambulation and movement, Patient would continue to benefit from skilled therapy to increase strength, endurance and safety at this time. P. Continue POC.
--- NOTE | 2018-10-06 15:16 | PTI REPORT ---
Thank you for the referral of Kamila Giron. She was seen on 10/05/18 for an inpatient evaluation status post right humeral fracture secondary to a fall. SUBJECTIVE: The patient is an 78-year-old female who states that she had a fall in her apartment. She states she fell to the right side and consequently she suffered a right humeral fracture and has a skinned up right knee. The patient lives at [facility] where she lives by herself. Prior to her fall she was independent with ADLs. She primarily ambulated without use of an assistive device. The patient does report falls previous to this one without any major injury. PAST MEDICAL HISTORY: Past medical history can be found in the patient's medical record. OBJECTIVE FINDINGS: General observations: The patient is alert and oriented to setting upon PT arrival. The patient was supine in bed with head of bed elevated. She complained of right arm pain secondary to her fracture. The patient did say that she needed to use the bathroom. Prior to the patient transferring, an arm sling was placed around the patient's right arm. Bed mobility: The patient required max assist x2 to transfer from supine to seated edge of bed as she was unable to slide toward the edge of the bed because she had difficulties pushing herself since she was unable to use her right arm. Once seated edge of bed the patient demonstrated fair seated edge of bed balance. Transfers: The patient then transferred from sit to standing position. She did require two attempts and did require mod assist. Once standing, the patient had poor initial standing balance and required hand hold assist on the left. Ambulation: Once the patient was able to gain her balance, she ambulated with assist on the left x25 feet to her bathroom where she performed toileting activity. The patient was wobbly with her gait and we are going to try a barbara walker on the left side to see if that provides a little bit more stability as she does need something to hold onto in order to ambulate safely. Strength: The patient does demonstrate 3/5 bilateral lower extremity strength. ASSESSMENT: The patient has fair rehab potential secondary to her age and past medical history. Problem List: Pain in the right arm Difficulties with transfers, ambulation, and weakness Short-Term Goals: To be met by discharge from inpatient: Patient will be able to transfer from bed to stand safely and independently. Patient will be able to ambulate at least 100 feet safely with most appropriate assistive device. Patient will demonstrate 4/5 bilateral lower extremity strength. Long-Term Goals: To be met following discharge from inpatient: Patient will most likely be in the sling for the next 6 weeks. The patient is right arm dominant. The patient probably needs to look into getting some feed crusher operator assistance at her apartment or rehabbing to home at the [facility] so that she is safe and able to perform all activities as she will have difficulties without use of her right arm and her overall balance. Patient will most likely require further skilled therapy in order to improve her strength, transfers, and balance to improve her overall safety. TREATMENT PLAN: Patient will be seen B.I.D during the week and one time per day over the weekend as an inpatient to address the above goals and objectives. INITIAL TREATMENT: Treatment today consisted of the initial evaluation. Following treatment the patient was left in bathroom with OT for evaluation and further assessment. BE
--- NOTE | 2018-10-06 15:45 | OTI REPORT ---
Thank you for the referral of Kamila Giron. She was seen on 10/05/18 for an occupational therapy inpatient evaluation status post right humeral fracture. SUBJECTIVE: The patient is an 78-year-old female who is being seen secondary to falling in her hallway at home. She suffered a non-displaced humeral neck fracture. Prior to admission the patient lived at [facility]. She did drive and performed all of her ADLs. She reports that her balance is becoming increasingly worse and sometimes she stumbles over her own toes. She does not have dizziness, but she has noticed that her balance has become increasingly worse. Her goal is to get back to her apartment. PAST MEDICAL HISTORY: Past medical history can be found in the patient's medical record. OBJECTIVE FINDINGS: Range of motion: Right upper extremity range of motion was not assessed secondary to her right humeral fracture. Wrist range of motion is within normal limits. Left upper extremity range of motion is within normal limits actively. Strength: Strength in left shoulder flexion was 3+/5, abduction was 3+/5, elbow flexion/extension was 4/5, and wrist flexion/extension was 4/5. She was able to oppose thumb to each digit. Edema: The patient demonstrates Grade I-II edema in the right upper extremity. Pain: The patient rates her pain as a 6/10 on the verbal analog scale (0=no pain, 10=worst pain). The patient reports a lot of pain when trying to move and transfer. Transfers: The patient requires max assist for sit to stand transfer; more than likely because of her right upper extremity pain. Activities of daily living: The patient requires max assist to dress upper and lower extremities. Balance: The patient definitely has balance difficulties. Cognition: The patient may need further cognitive testing as she does tend to get slightly confused with functional transfers. ASSESSMENT: The patient does demonstrate some mild confusion, which may be more medication related, or this may be her baseline. This may need to be further assessed later on. The patient will more than likely need approximately 6 weeks of healing for her humerus. We did discuss possible 24-hour care secondary to her balance issues and decreased ability to care for herself for a while. The patient was open about possibly looking at the [facility] for further rehab until her bone is healed and she can actually use her right upper extremity before returning home to her apartment. Problem List: Decreased upper extremity strength Decreased ability to complete ADLs Decreased ability to complete functional transfers Decreased safety Short-Term Goals: To be met by discharge from inpatient: Patient will be able to dress upper extremities with min assist. Patient will be able to dress lower extremities with min assist and use of adaptive devices. Patient will increase left upper extremity strength to 4+/5. Patient will be able to complete shower and toilet transfers with stand by assist. Patient may participate in cognitive screening/evaluation. Long-Term Goals: To be met following discharge from inpatient: Patient will return home or to a 24-hour care facility until her humerus head heals. TREATMENT PLAN: Patient will be seen B.I.D during the week and one time per day over the weekend as an inpatient to address the above goals and objectives. INITIAL TREATMENT: Treatment today consisted of the initial evaluation followed by the patient completing a toilet transfer; the therapist observed her transfer technique and how difficult it was for her to pull up her pants. Her pain levels were too high to address upper extremity dressing; however, per observation, it is going to be very difficult secondary to her pain levels and not being able to move her right upper extremity. Cognitively, the patient was able to address how she fell, but there were some moments of short term memory difficulties that were observed. BE
--- NOTE | 2018-10-06 15:54 | PT.PROG ---
Progress Note Progress Note: S. Patient stated that she is tired after working with OT. However she agreed to do exercises. O. Patient was wheeled to the therapy gym, where she had heat to her shoulder, and performed seated exercises in the form of; long arc quads, marches, heel toe raises, ball squeezes, clam shells, and resisted knee flexion all x 10 bilaterally. Patient ambulated 70 feet to the wheelchair and was returned to her room where she was left with alarm and call. A. Patient tolerated therapy fair, she was very fatigued after working with OT and was unable to perform all exercises, or ambulate as far as previously, She was able to perform sit to stand transfer and ambulation with min assist. Patient would continue to benefit from skilled therapy to increase strength, endurance and safety at this time. P. Continue POC.
--- NOTE | 2018-10-06 16:16 | OT PM DAY ---
Diagnosis : Right Humeral Fracture PM - Occupational Therapy S: Dr. Dodge did order a Sher Cognitive Assessment (MoCA) for the patient. O: The patient participated in the MoCA and the results were as follows: Visuospatial Executive: 2/5 The patient had a lot of difficulty following a sequence and copying the cube. She was able to draw a [place] and ended up putting half toño numerals and half regular numbers in the clock. She had difficulty drawing out the time. Namin/3 The patient called the rhinoceros a hippopotamus. She had difficulty with immediate recall of five words. Attention: /6 The patient had difficulty subtracting numbers. Language: 2/3 The patient was able to repeat sentences but had difficulty trying to think of words that began with the letter F. She was only able to think of two words in a one minute time period. Abstraction: 0/2 The patient was not able to get the example of the banana and orange being similar in fruit. Even when that cue was given, she did not necessarily understand. Delayed recall: 0/5 The patient was not able to remember any of the five words. Orientation: 01/18 The patient thought the year was 2011 Overall the patient scored 15/30 which places her in the MODERATE cognitive impairment level. Her main areas of concern were her memory, her executive functions, abstraction, and some language components. A: The patient demonstrates possible difficulty in caring for self, especially when it comes to medication management and other higher level activities that she would have to do. It is also questionable whether or not the patient is safe to drive as this score would indicate that she may have some processing difficulties in a car. The patient may have difficulty trying to participate in the CPT without the use of her right upper extremity, but she may benefit from further assessment to look at medication/financial recruiter. It is still recommended that the patient have 24-hour care upon discharge. P: Continue seeing patient BID during the week and one time per day over the weekend for upper extremity strengthening, ADLs, and overall functional mobility. BE
[2018-10-06] MEDS: PANTOPRAZOLE 40 MG TABLET PO SCH (17:02)
[2018-10-06] MEDS: DOCUSATE 100 MG CAPSULE PO PRN (20:36)
[2018-10-06] MEDS: ATORVASTATIN 40 MG TABLET PO SCH (20:36)
[2018-10-07] MEDS: HYDROcodone-APAP 5 MG -325 MG TABLET PO PRN ×2 (04:33→09:46)
[2018-10-07 05:16] LABS: Hematocrit [HCT] 37.1 % (37.0-47.0); Hemoglobin [HGB] 11.7 g/dL (12.0-16.0); MEAN CORPUSCULAR HGB CONC 31.5 g/dL (33-37); MEAN CORPUSCULAR VOLUME 88.8 FL (81-99); MEAN PLATELET VOLUME 11.9 FL (7.4-12.2); RED BLOOD COUNT 4.18 10^6/uL (4.20-5.40)
[2018-10-07 05:28] LABS: BLOOD UREA NITROGEN 16 mg/dL (7-22)
[2018-10-07] MEDS: POTASSIUM CHLORIDE 20 MEQ TAB PO SCH ×2 (08:07→20:41)
[2018-10-07] MEDS: Metoprolol TARTRATE Tab 25 MG TAB PO SCH ×2 (08:07→20:41)
[2018-10-07] MEDS: Calcium/Vit D 600mg/400u Tab 1 TAB TABLET PO SCH ×2 (08:07→20:41)
[2018-10-07] MEDS: FENOFIBRIC ACID 135 MG PO SCH (10:24)
--- NOTE | 2018-10-07 11:32 | PDOC(PROG) ---
Date of Service: 10/07/18 Time of Service: 11:27 Interval History: No complaints of chest pain, shortness breath, nausea or vomiting. Does complain of shoulder pain. Objective : Data - Labs CBC and BMP: 10/07/18 04:50 10/07/18 04:50 Objective : Exam - General General Appearance: No Acute Distress, Cooperative Additional General Exam Details: Vital Signs - Last Taken Temperature 97.1 F 10/07/18 07:44 Pulse Rate 68 10/07/18 07:44 Respiratory Rate 16 10/07/18 07:44 Blood Pressure 157/87 10/07/18 07:44 Pulse Ox 95 10/07/18 07:44 - Eye Eye Exam: No Scleral Icterus - ENT ENT Exam: Mucous Membranes Moist - Neck Neck Exam: JVP is not Raised - Respiratory Respiratory Exam: Clear to Auscultation - Bilaterally, Breathing Non Labored - Cardiovascular Cardiovascular Exam: RRR, No Murmur, No Clicks, No Gallops, No Rubs, No JVD - GI/Abdominal GI/Abdominal Exam: Normal Bowel Sounds, Non Tender, Non Distended, Soft - Extremities Extremities Exam: No Clubbing Present, No Edema Present, No Cyanosis Present, Joint Swelling (Right shoulder, in sling at this time.) - Neurological Neurological Exam: Alert, No Facial Droop, Speech Intact / Clear, Altered (Alert to self, not to place, time, or situation.) Assessment and Plan - Patient Problems (1) Proximal humerus fracture Current Visit: Yes Status: Acute Code(s): S42.209A - Unspecified fracture of upper end of unspecified humerus, initial encounter for closed fracture Qualifiers: Encounter type: initial encounter Fracture type: closed Fracture alignment: nondisplaced Laterality: right (2) Essential hypertension Current Visit: Yes Status: Chronic Onset Date: 11/12/11 Code(s): I10 - Essential (primary) hypertension (3) Hyperlipidemia Current Visit: Yes Status: Chronic Onset Date: 11/12/11 Code(s): E78.5 - Hyperlipidemia, unspecified Qualifiers: Hyperlipidemia type: pure hypercholesterolemia Qualified Code(s): E78.00 - Pure hypercholesterolemia, unspecified; E78.0 - Pure hypercholesterolemia (4) Hypokalemia Current Visit: Yes Status: Acute Code(s): E87.6 - Hypokalemia (5) Acute renal failure Current Visit: Yes Status: Resolved Code(s): N17.9 - Acute kidney failure, unspecified Qualifiers: Acute renal failure type: unspecified Qualified Code(s): N17.9 - Acute kidney failure, unspecified (6) Osteoporosis Current Visit: Yes Status: Chronic Onset Date: 03/09/12 Code(s): M81.0 - Age-related osteoporosis without current pathological fracture Qualifiers: Osteoporosis type: age-related Encounter type: initial encounter (7) Obstructive sleep apnea syndrome Current Visit: Yes Status: Chronic Onset Date: 11/01/13 Code(s): G47.33 - Obstructive sleep apnea (adult) (pediatric) (8) Alzheimer's dementia without behavioral disturbance Current Visit: Yes Status: Acute Code(s): G30.9 - Alzheimer's disease, unspecified; F02.80 - Dementia in other diseases classified elsewhere without behavioral disturbance Qualifiers: Alzheimer's disease onset: late-onset Qualified Code(s): G30.1 - Alzheimer's disease with late onset; F02.80 - Dementia in other diseases classified elsewhere without behavioral disturbance - Assessment / Plan Additional Assessment/Plan Details: Unfortunately, MOCA confirms our suspicions that the patient has underlying Alzheimer's dementia. I read her last note in the clinic, and red to her prior medical records, it was no indication of this in the past so I will go ahead and do some laboratory studies and an imaging study of the brain to look for other potential causes of memory loss. Complicating this, the patient is not competent to make her own medical decisions. She really needs her power of claims attorney to do so. We have learned that her brother is her primary medical decision maker per her power of claims attorney and her cousin is secondary, but apparently neither one of them really wants to do the job. I placed a call to the patient's brother but have not heard back. She is not going to be stable to go home. She not understand risks and benefits of procedures like CPR. I will get a TSH, free T4, vitamin D, vitamin B-12, and folic acid level. I think her clinical risk of syphilis is low so hold off on that. I will also get a head CT scan Continue PT and OT. Placement, likely penitentiary facility. Continue pain medications and also continue ice as needed. Stop morphine at this point.
--- NOTE | 2018-10-07 11:50 | PT.PROG ---
Progress Note Progress Note: S. Patient stated that she is very tired this morning, however agreed to go to the therapy gym. O. Patient ambulated 30 feet to the wheelchair and was wheeled to the therapy gym where she transferred to the mat table and performed seated long arc quads, marches, heel toe raises, ball squeezes, clam shells, resisted knee flexion all x 15 bilaterally with red thera bands, Patient then performed sit to stands x 5 and ambulated 90 feet to the wheelchair and was returned to her room where she transferred to the chair and was left with alarm and call light. A. Patient tolerated therapy fair, she continues to struggle with pain in her arm, she was able perform ambulation with min assist, she continues to struggle with memory and requires frequent verbal cues for safety. She would continue to benefit from skilled therapy to increase strength, endurance and safety at this time. P. Continue POC.
--- NOTE | 2018-10-07 11:53 | OT.PROG ---
Progress Note Progress Note: S: pt stated that her shoulder hurt but agreed to come to therapy gym for heat modalities. O: tx consisted of functional transfer form recliner to standing with MOD A for sanding and MOD vcs to complete task. pt then completed functional ambulation x 25' with barbara walker and CGA for safety. pt transferred with CGA for safety to mat table and completed L UE RTB exercises in all planes of motion x10 each and 2# L UE biceps curls, chest press and shoulder press x10 each. A: pt tolerated session well. pts c/o pain lessened during tx exercises. P: continue POC
--- NOTE | 2018-10-07 15:23 | OT.PROG ---
Progress Note Progress Note: S: pt was a little confused, but did report pain today in her arm during transfers. O: pt was seen in her room and was reclined in chair. She completed sit to stand with min A and completed functional transfer 150 ft to therapy taking no breaks and using barbara walker. After completing PT, she transferred to mat table and completed UE exericses with LUE with RTB in all planex x20 and then putty with B hands to improve overall function. She then completed sitting dynamic balance activity Using only LUE to participate. She transferred upstairs to radiology for CT. A: pt participated well and transfers well with barbara walker,although slow it is safe. Pain appeared to have increased while she was up transferring. P: continue per POC.
--- NOTE | 2018-10-07 15:41 | DI ---
CT HEAD SCAN WITHOUT IV CONTRAST, 10/07/2018 10:13 AM : Clinical History: Injury. The patient fell. Confusion. Previous Exam: 07/25/2017. Technique: Performed from the foramen magnum to vertex without IV contrast. Contrast Volume: None. 4th Ventricle: Normal. 3rd Ventricle: Normal for age. Lateral Ventricles: Normal for age. Sella: Normal size and normal pituitary gland. Cerebrum: No evidence of an acute intracranial hemorrhagic focus. Multiple punctate periventricular w akiko matter lucencies bilaterally extend into the watershed territory, consistent with small vessel i schemic disease. This amount of ischemic disease is appropriate for the patient's age. Cerebellum: Normal. No cerebellopontine angle mass. Normal cerebellar tonsillar position. Brainstem: Normal. Atrophy: Mild cerebellar and cerebral atrophy. Extracerebral Mantles/Midline Shift: No extracerebral mantle or dural lesion. No midline shift. Sinuses: Normal. Skull: Intact. READIN. No evidence of an acute intracranial hemorrhagic focus. 2. Small vessel ischemic disease. 3. Mild cerebellar and cerebral atrophy.
[2018-10-07] MEDS: PANTOPRAZOLE 40 MG TABLET PO SCH (17:30)
--- NOTE | 2018-10-07 17:55 | PT.PROG ---
Progress Note Progress Note: S. patient stated that she is in a lot of pain this afternoon however agreed to go to the therapy gym. O. Patient was wheeled to the therapy gym where she used the nu-step x 5 minutes, then performed seated long arc quads, marches, heel toe raises, ball squeezes, clam shells, resisted knee flexion all x 10 with red thera band. Patient performed sit to stands x 5 then ambulated 70 feet to the wheelchair and was wheeled to WI where she was left. A. Patient tolerated therapy fair this afternoon, she continues to struggle with pain, and some balance deficits, she would continue to benefit from skilled therapy to increase strength, endurance and safety at this time. P. Continue POC.
[2018-10-07] MEDS: ATORVASTATIN 40 MG TABLET PO SCH (20:41)
[2018-10-07] MEDS: DOCUSATE 100 MG CAPSULE PO PRN (20:41)
[2018-10-08] MEDS: HYDROcodone-APAP 5 MG -325 MG TABLET PO PRN ×3 (01:41→11:47)
[2018-10-08] MEDS ORDERED: CYANOCOBALAMIN 1000 MCG/1 ML VIAL IM ONE (06:40)
[2018-10-08 07:29] LABS: HEMOGLOBIN A1C 5.74 % (4.2-6.0)
--- NOTE | 2018-10-08 08:03 | PDOC(PROG) ---
Date of Service: 10/08/18 Time of Service: 07:59 Interval History: History not overly reliable due to dementia, but no complaints of worsening shoulder pain, states that sore. RN noted that the patient had right-sided calf tenderness. Objective : Data - Labs CBC and BMP: 10/07/18 04:50 10/07/18 04:50 Objective : Exam - General General Appearance: No Acute Distress, Cooperative Additional General Exam Details: Vital Signs - Last Taken Temperature 97.2 F 10/08/18 07:05 Pulse Rate 67 10/08/18 07:05 Respiratory Rate 16 10/08/18 07:05 Blood Pressure 180/82 10/08/18 07:05 Pulse Ox 95 10/08/18 07:05 - Eye Eye Exam: No Scleral Icterus - ENT ENT Exam: Mucous Membranes Moist - Neck Neck Exam: JVP is not Raised - Respiratory Respiratory Exam: Clear to Auscultation - Bilaterally, Breathing Non Labored - Cardiovascular Cardiovascular Exam: RRR, No Murmur, No Clicks, No Gallops, No Rubs, No JVD - GI/Abdominal GI/Abdominal Exam: Normal Bowel Sounds, Non Tender, Non Distended, Soft - Extremities Extremities Exam: No Clubbing Present, No Edema Present, No Cyanosis Present, Positive Yolanda's Sign (On the right calf) - Neurological Neurological Exam: Alert, No Facial Droop, Speech Intact / Clear, Moves All Extremities Equally Additional Neurological Exam Details: Alert to self. Not to place, time or situation. Assessment and Plan - Patient Problems (1) Right calf pain Current Visit: Yes Status: Acute Code(s): M79.661 - Pain in right lower leg (2) Proximal humerus fracture Current Visit: Yes Status: Acute Code(s): S42.209A - Unspecified fracture of upper end of unspecified humerus, initial encounter for closed fracture Qualifiers: Encounter type: initial encounter Fracture type: closed Fracture alignment: nondisplaced Laterality: right (3) Essential hypertension Current Visit: Yes Status: Chronic Onset Date: 11/12/11 Code(s): I10 - Essential (primary) hypertension (4) Hyperlipidemia Current Visit: Yes Status: Chronic Onset Date: 11/12/11 Code(s): E78.5 - Hyperlipidemia, unspecified Qualifiers: Hyperlipidemia type: pure hypercholesterolemia Qualified Code(s): E78.00 - Pure hypercholesterolemia, unspecified; E78.0 - Pure hypercholesterolemia (5) Hypokalemia Current Visit: Yes Status: Resolved Code(s): E87.6 - Hypokalemia (6) Osteoporosis Current Visit: Yes Status: Chronic Onset Date: 03/09/12 Code(s): M81.0 - Age-related osteoporosis without current pathological fracture Qualifiers: Osteoporosis type: age-related Encounter type: initial encounter (7) Obstructive sleep apnea syndrome Current Visit: Yes Status: Chronic Onset Date: 11/01/13 Code(s): G47.33 - Obstructive sleep apnea (adult) (pediatric) (8) Alzheimer's dementia without behavioral disturbance Current Visit: Yes Status: Acute Code(s): G30.9 - Alzheimer's disease, unspecified; F02.80 - Dementia in other diseases classified elsewhere without behavioral disturbance Qualifiers: Alzheimer's disease onset: late-onset Qualified Code(s): G30.1 - Alzheimer's disease with late onset; F02.80 - Dementia in other diseases classified elsewhere without behavioral disturbance - Assessment / Plan Additional Assessment/Plan Details: Examination of the right calf, and appears to me that she has a little bit of skin breakdown on the medial aspect of the right calf distally but superior to the ankle. Could be consistent with an arterial ulcer? I don't think this is consistent with cellulitis. Calf was tender so we will check for a DVT. Continue ice, pain control for right humerus fracture. PT and OT. [facility] We were able to confirm with the patient's brother, Clayton Giron at [phone], the patient is DO NOT RESUSCITATE. He was fine with the plan of proceeding to residential.
--- NOTE | 2018-10-08 08:42 | DI ---
VENOUS DOPPLER ULTRASOUND OF THE RIGHT LOWER EXTREMITY, 10/08/2018 7:59 AM: Clinical History: Right calf tenderness. Previous Exam: 08/30/2015. Technique: 2D real-time imaging and color Doppler ultrasound with compression and augmentation maneuv ers. Deep Venous System: Normal deep venous system from groin to popliteal fossa. Superficial Venous System: Normal greater saphenous vein. Reading: Negative venous Doppler ultrasound of the right lower extremity.
[2018-10-08] MEDS: CYANOCOBALAMIN (VITAMIN B-12) 1,000 MCG TABLET.ER PO SCH (09:50)
[2018-10-08] MEDS: Metoprolol TARTRATE Tab 25 MG TAB PO SCH ×2 (09:50→21:22)
[2018-10-08] MEDS: POTASSIUM CHLORIDE 20 MEQ TAB PO SCH ×2 (09:51→21:22)
[2018-10-08] MEDS: Calcium/Vit D 600mg/400u Tab 1 TAB TABLET PO SCH ×2 (09:51→21:22)
--- NOTE | 2018-10-08 10:46 | OT.PROG ---
Progress Note Progress Note: S: pt stated several times that her shoulder/arm is hurting. She says it hurts most when she goes from sitting to standing or standing to sitting. O: pt was seen in her room in bed in supine position. She needed min A to completed bed mobility from supine position. She completed sit to stand with mod INd as it took her a little longer to complete. she completed brushing hair Ind with L UE while standing next to the sink. She then transferred downstairs with barbara walker taking no breaks. She completed x10 sit to stands Ind, Ue exercises 2# dumbbell in shoulder flex, bicep flex, with LUE and pac man, putty with b hands. She was left upright in chair with alarm on and call light within reach. A: pt participates well and appears to transfer safely with barbara walker. She may continue to benefit from therapy to increase overall activity tolerance and improve function with bed mobility and ADL's. P: continue per POC.
[2018-10-08] MEDS: FENOFIBRIC ACID 135 MG PO SCH (11:30)
--- NOTE | 2018-10-08 14:32 | OT.PROG ---
Progress Note Progress Note: S: pt still reports pain in her arm. Says its worse when she tries to stand up. O: pt was seen in her room completing supine to EOB with min A. She then completed transfer entire way to therapy apprx 150 ft with no breaks. She completed sitting/dynamic balance activity to improve her balance during transitions. She then completed UE exercises with RTB in all planes with LUE to increase strength to assist with postural transitions such as sit to stands. A: Pt participated well in therapy and appears to display good balance during transitions. Pain in RUE is still present especially duirng transitions. P: continue per POC.
--- NOTE | 2018-10-08 15:51 | PT.PROG ---
Progress Note Progress Note: S. Patient stated that she is feeling alright this afternoon. O. Patient ambulated to the therapy gym with OT then used the nu step x 12 minutes, then performed seated; long arc quads, marches, ball squeezes, clam shells, resisted knee flexion, sit to stands all x 10 with 2# and red thera bands. Patient then ambulated 175 feet back to her room where she was left with alarm and call light. A. Patient tolerated therapy well, she continues to struggle with balance deficits, however is making gains with strength and endurance, she continues to require frequent verbal cues to stay on task. She would continue to benefit from skilled therapy to increase strength, endurance and safety. P. Continue POC.
[2018-10-08] MEDS: PANTOPRAZOLE 40 MG TABLET PO SCH (17:17)
[2018-10-08] MEDS ORDERED: FENOFIBRATE 145 MG TABLET PO SCH (21:00)
[2018-10-08] MEDS: ATORVASTATIN 40 MG TABLET PO SCH (21:22)
[2018-10-09] MEDS: HYDROcodone-APAP 5 MG -325 MG TABLET PO PRN ×2 (05:21→13:27)
[2018-10-09] MEDS: Calcium/Vit D 600mg/400u Tab 1 TAB TABLET PO SCH (09:00)
[2018-10-09] MEDS: Metoprolol TARTRATE Tab 25 MG TAB PO SCH (09:00)
[2018-10-09] MEDS: POTASSIUM CHLORIDE 20 MEQ TAB PO SCH (09:00)
[2018-10-09] MEDS: CYANOCOBALAMIN (VITAMIN B-12) 1,000 MCG TABLET.ER PO SCH (09:00)
--- NOTE | 2018-10-09 10:39 | OT.PROG ---
Progress Note Progress Note: S: pt stated that she was feeling good and agreed to therapy. O: tx consisted of functional transfer from recliner to standing with verbal cues for safety and positioning for transfer, functional ambulation x 150' with barbara walker and CGA for safety, pt then completed L UE RTB exercises in all planes of motion x15 each and R UE 3# exercises of biceps, rows, shoulder flexion and chest press x10 each. A: pt tolerated session well. moist heat was applied to pts R UE for pain management x20 min. P: continue POC
--- NOTE | 2018-10-09 11:25 | PT.PROG ---
Progress Note Progress Note: S. Patient stated that she is having a lot of pain in her shoulder. O. Patient ambulated 175 feet to the wheelchair and was wheeled to the therapy gym where she had heat to her shoulder to decrease pain. Patient then performed exercises in the form of; seated long arc quads, marches, ball squeezes, clam shells, resisted knee flexion, heel toe raises, all x 10 bilaterally with red thera bands and 2# weights, Patient then performed sit to stands x 5 then ambulated 175 feet to to her room and was left with call light and alarm. A. Patient tolerated therapy fair, she was able to perform all exercises, however continues to struggle with pain in her shoulder, Patient continues to require mod assist with transfers and min assist with ambulation, she would continue to benefit from skilled therapy to increase strength, endurance, and safety at this time. P. Continue POC.
[2018-10-09 11:53] VITALS: O2SAT 96
[2018-10-09 11:54] VITALS: BP 153/65; RESP 18; TEMP 97.6
--- NOTE | 2018-10-09 11:59 | DCSUMMARY ---
Hospitalization Summary Admit Date: 10/05/2018 Discharge Date: 10/09/18 Primary Diagnosis:: right humerus fracture Secondary Diagnosis:: Resolved acute renal failure Resolved hypokalemia Moderate to severe Alzheimer's dementia Hospital Course: Very pleasant 78-year-old female that had a mechanical fall and has a right humerus fracture. It is nonsurgical. She remains in a sling. She is admitted because of those issues and an elevated creatinine suggestive of acute renal failure and hypokalemia. Potassium was replaced. Creatinine improved. The patient was found to have moderate to severe Alzheimer's dementia and we confirmed with her brother, her power of damage adjuster, as the patient is not competent to make her decisions, that he would like her placed in [facility] for continued PT and OT and possibly a long-term care situation. The patient complains of shoulder pain but otherwise denies any other complaints of chest pain, shortness breath, nausea or vomiting. Assessment and Plan: 1. As per discharge assessments noted 2. Disposition: Patient is discharged to swing bed 3. Condition on discharge, stable and improved. 4. Diet: regular diet 5. Activities: Patient will remain in the sling, repeat x-rays in about 2 weeks 6. Follow-Up: 1. Hospital service will continue to follow patient's care on the swing bed 2. 7. Medications at the Time of Discharge: Active Medications Generic Name Dose Route Start Last Admin Trade Name Freq PRN Reason Stop Dose Admin Acetaminophen 650 mg 10/05/18 04:20 Tylenol PO Q6H PRN Pain or Fever Hydrocodone Bitart/Acetaminophen 1 - 2 tab 10/05/18 14:22 10/09/18 05:21 [facility] 5/325 Tab PO 1 tab Q4H PRN Administration Pain Atorvastatin Calcium 40 mg 10/05/18 21:00 10/08/18 21:22 Lipitor PO 40 mg BEDTIME PRADEEP Administration Calcium Carbonate 1 - 2 tab 10/05/18 04:20 Tums PO Q6H PRN Heartburn Calcium/Vitamin D 1 tab 10/05/18 21:00 10/09/18 09:00 Calcium 600mg + D 400u Tab PO 1 tab BID PRADEEP Administration Cyanocobalamin 1,000 mcg 10/08/18 09:00 10/09/18 09:00 Vitamin B-12 PO 1,000 mcg DAILY PRADEEP Administration Docusate Sodium 100 mg 10/05/18 04:20 10/07/18 20:41 Colace PO 100 mg BID PRN Administration Constipation Fenofibrate 145 mg 10/08/18 21:00 10/08/18 21:22 Tricor PO 145 mg BEDTIME PRADEEP Administration Sodium Chloride 25 mls @ 200 mls/hr 10/05/18 04:20 Normal Saline 0.9% IV .Post Infusion PRN No Primary IV for Flush ONLY Lidocaine HCl 0.5 ml 10/05/18 04:20 Lidocaine Buffered Inj SUBD ONCE PRN IV Starts Metoprolol Tartrate 25 mg 10/05/18 09:00 10/09/18 09:00 Lopressor Tab PO 25 mg BID PRADEEP Administration Ondansetron HCl 4 mg 10/05/18 04:20 Zofran Inj IVP Q4H PRN NAUSEA / VOMITING Pantoprazole Sodium 40 mg 10/05/18 17:00 10/08/18 17:17 Protonix PO 40 mg DAILY@1700 PRADEEP Administration Polyethylene Glycol 17 gm 10/05/18 15:43 Miralax Packet PO DAILY PRN Constipation Potassium Chloride 20 meq 10/05/18 09:00 10/09/18 09:00 Klor-Con PO 20 meq BID PRADEEP Administration 8. Time, care, counseling and coordination of care for this discharge is less than 30 minutes. Exam - Vitals Vital Signs: Vital Signs Temperature 97.6 F Temperature Source Temporal Artery Scan Pulse Rate [Apical] 80 Pulse Rate [Pulse Oximeter] 71 Pulse Rate 59 Respiratory Rate 18 Blood Pressure [Left Arm] 153/65 Blood Pressure 159/73 Pulse Ox 96 Oxygen Flow Rate 1.5 Oxygen Delivery Method Nasal Cannula Height 5 ft 5 in Weight 172 lb 4.8 oz - General General Appearance: No Acute Distress, Cooperative - Eye Eye Exam: POSITIVE: No Scleral Icterus - ENT ENT Exam: POSITIVE: Mucous Membranes Moist - Neck Neck Exam: JVP is not Raised - Respiratory Respiratory Exam: POSITIVE: Clear to Auscultation - Bilaterally, Breathing Non Labored - Cardiovascular Cardiovascular Exam: POSITIVE: RRR, No Murmur, No Clicks, No Gallops, No Rubs, No JVD - GI/Abdominal GI/Abdominal Exam: POSITIVE: Normal Bowel Sounds, Non Tender, Non Distended, Soft - Extremities Extremities Exam: POSITIVE: No Clubbing Present, No Edema Present, No Cyanosis Present, Joint Swelling (Right shoulder is swollen, but swelling is markedly decreased from a couple days ago.) - Neurological Neurological Exam: POSITIVE: Alert, No Facial Droop, Speech Intact / Clear, Altered (Alert to person but not to place, time, or situation.) Data Peritnent Studies: 10/05/18 10/07/18 10/07/18 02:10 04:50 04:50 WBC 10.27 Hgb 11.7 L Hct 37.1 Plt Count 229 Sodium 141 Potassium 4.2 Chloride 104 Carbon Dioxide 28 Anion Gap 9 BUN 16 Creatinine 0.8 Glucose 117 H Hemoglobin A1c Calcium 9.0 Total Bilirubin 1.0 AST 22 ALT 34 Alkaline Phosphatase 63 Total Protein 7.3 Albumin 4.7 Globulin 2.6 Albumin/Globulin Ratio 1.80 Vitamin B12 Vitamin D 25-Hydroxy Serum Folate TSH Free T4 10/07/18 10/07/18 10/07/18 10:30 10:30 10:30 WBC Hgb Hct Plt Count Sodium Potassium Chloride Carbon Dioxide Anion Gap BUN Creatinine Glucose Hemoglobin A1c Calcium Total Bilirubin AST ALT Alkaline Phosphatase Total Protein Albumin Globulin Albumin/Globulin Ratio Vitamin B12 334 Vitamin D 25-Hydroxy 39.2 Serum Folate 19.8 TSH 1.99 Free T4 1.42 10/08/18 07:09 WBC Hgb Hct Plt Count Sodium Potassium Chloride Carbon Dioxide Anion Gap BUN Creatinine Glucose Hemoglobin A1c 5.74 Calcium Total Bilirubin AST ALT Alkaline Phosphatase Total Protein Albumin Globulin Albumin/Globulin Ratio Vitamin B12 Vitamin D 25-Hydroxy Serum Folate TSH Free T4 Patient Problems - Patient Problem List (1) Proximal humerus fracture Current Visit: Yes Status: Acute Code(s): S42.209A - Unspecified fracture of upper end of unspecified humerus, initial encounter for closed fracture Qualifiers: Encounter type: initial encounter Fracture type: closed Fracture alignment: nondisplaced Laterality: right Category: Medical (2) Essential hypertension Current Visit: Yes Status: Chronic Onset Date: 11/12/11 Comment: well controlled. Code(s): I10 - Essential (primary) hypertension Category: Medical (3) Hyperlipidemia Current Visit: Yes Status: Chronic Onset Date: 11/12/11 Code(s): E78.5 - Hyperlipidemia, unspecified Qualifiers: Hyperlipidemia type: pure hypercholesterolemia Qualified Code(s): E78.00 - Pure hypercholesterolemia, unspecified; E78.0 - Pure hypercholesterolemia Category: Medical (4) Hypokalemia Current Visit: Yes Status: Resolved Code(s): E87.6 - Hypokalemia Category: Medical (5) Osteoporosis Current Visit: Yes Status: Chronic Onset Date: 03/09/12 Code(s): M81.0 - Age-related osteoporosis without current pathological fracture Qualifiers: Osteoporosis type: age-related Encounter type: initial encounter Category: Medical (6) Obstructive sleep apnea syndrome Current Visit: Yes Status: Chronic Onset Date: 11/01/13 Code(s): G47.33 - Obstructive sleep apnea (adult) (pediatric) Category: Medical (7) Alzheimer's dementia without behavioral disturbance Current Visit: Yes Status: Acute Code(s): G30.9 - Alzheimer's disease, unspecified; F02.80 - Dementia in other diseases classified elsewhere without behavioral disturbance Qualifiers: Alzheimer's disease onset: late-onset Qualified Code(s): G30.1 - Alzheimer's disease with late onset; F02.80 - Dementia in other diseases classified elsewhere without behavioral disturbance Category: Medical (8) Right calf pain Current Visit: Yes Status: Resolved Code(s): M79.661 - Pain in right lower leg Category: Medical
== END 2018-10-09 13:43 | disposition swing bed (61) | DRG 563 ==
LOC: ER 02:12 → MED/SURG 04:04
PROVIDERS: ADMIT Internal Medicine; ATTEND Internal Medicine